=== PATIENT | male | born 1950 | race Caucasian/White ===

== ENCOUNTER 2016-12-17 13:17 | Inpatient (IN) | payer OTHER ==
[~2016-12-17] VITALS: Ht 177.8 cm; Wt 96.5 kg
[~2016-12-17 13:17] MED LIST: ASCORBIC ACID100 MG PO; ASCORBIC ACID250 MG PO; BACTRIM,SEPT1 TABLET PO; CLINDAMYCIN HC300 MG PO; GLIMEPIRIDE4 MG PO; GLYBURIDE5 MG PO; IRON160 M1 PO; IRON325 M1 PO; JANUVIA100 MG PO; LASIX40 MG PO; LO-DOSE ASPIRIN81 M1 PO; LOPRESSOR25 MG PO; METFORMIN HCL1000 MG PO; METOPROLOL TART25 MG PO; PRAVASTATIN SOD10 MG PO; PRINIVIL20 MG PO; VITAMIN B-12500 MC2 PO; VITAMIN B-12500 MC3 PO
[2016-12-17 14:37] LABS: HEMATOCRIT 32.6 % (38.0-50.0); MCH 31.4 PG (29.0-34.0); MCV 92.4 FL (86-99); MEAN PLAT.VOLUME 9.9 uM^3 (9.0-12.4); PLATELET COUNT 326 K/uL (156-360); RBC DIS.WIDTH-CV 13.9 % (11.8-14.6); RBC DIS.WIDTH-SD 46.8 % (39-53); RED BLOOD COUNT 3.53 M/uL (4.00-5.50); WHITE BLOOD COUNT 18.9 K/uL (4.1-10.2)
[2016-12-17 14:45] LABS: CHLORIDE 100 mEq/L (99-109); INTER. NORMALIZED RATIO 1.2; PROTHROMBIN TIME 12.5 (9.2-11.2); SODIUM 128 mEq/L (136-147)
[2016-12-17 14:47] LABS: GLUCOSE 302 mg/dL (70-99)
[2016-12-17 14:48] LABS: ANION GAP 12 MEQ/L (2-14)
[2016-12-17 14:49] LABS: TOTAL BILIRUBIN 1.9 mg/dL (0.0-1.0)
[2016-12-17 14:50] LABS: ALKALINE PHOSPHATASE 71 IU/L (3-129)
[2016-12-17 14:51] LABS: GFR ESTIMATE (CALCULATED) 49 mL/min/
[2016-12-17 14:52] LABS: POTASSIUM 6.8 mEq/L (3.7-5.4); UREA NITROGEN (BUN) 66 mg/dL (9-23)
[2016-12-17 16:34] LABS: TYPE OF FLUID PERITONEAL
[2016-12-17 17:35] LABS: BODY FLUID EOSINOPHILS 0 % (0-25); BODY FLUID RBC'S 1250 /MM^3 (0-100); BODY FLUID WBC'S 17125 /MM^3 (0-500); MONONUCLEAR WBC'S 2 %; POLYNUCLEAR WBC'S 98 % (0-25)
[2016-12-17] MEDS ORDERED: LOW DOSE ASPIRI81 M1 PO (18:35)
[2016-12-17] MEDS ORDERED: LIPITOR40 MG PO (18:36)
[2016-12-17] MEDS ORDERED: VITAMIN B-6100 MG PO (18:38)
[2016-12-17] MEDS ORDERED: BENTYL10 MG PO (18:39)
[2016-12-17] MEDS ORDERED: ALDACTONE25 MG PO (18:40)
[2016-12-17] MEDS ORDERED: LEVEMIR100 UNIT/2 SC (18:41)
[2016-12-17] MEDS ORDERED: K-DUR20 MEQ PO (18:41)
[2016-12-17 19:31] LABS: POTASSIUM 6.1 mEq/L (3.7-5.4)
[2016-12-17 20:43] VITALS: BP 143/65
[2016-12-17 23:45] VITALS: BP 136/61
[2016-12-18 03:18] LABS: CHLORIDE 102 mEq/L (99-109); SODIUM 131 mEq/L (136-147)
[2016-12-18 03:19] LABS: GLUCOSE 239 mg/dL (70-99)
[2016-12-18 03:21] LABS: ANION GAP 10 MEQ/L (2-14)
[2016-12-18 03:23] LABS: GFR ESTIMATE (CALCULATED) 46 mL/min/
[2016-12-18 03:24] LABS: UREA NITROGEN (BUN) 70 mg/dL (9-23)
[2016-12-18 03:25] LABS: POTASSIUM 6.3 mEq/L (3.7-5.4)
[2016-12-18 03:49] VITALS: BP 130/64
[2016-12-18 05:03] LABS: CHLORIDE 102 mEq/L (99-109); SODIUM 131 mEq/L (136-147)
[2016-12-18 05:05] LABS: GLUCOSE 200 mg/dL (70-99)
[2016-12-18 05:06] LABS: ANION GAP 12 MEQ/L (2-14)
[2016-12-18 05:09] LABS: GFR ESTIMATE (CALCULATED) 49 mL/min/; UREA NITROGEN (BUN) 68 mg/dL (9-23)
[2016-12-18 07:08] LABS: EOSINOPHIL (%) 0.3 % (0-5); HEMATOCRIT 30.1 % (38.0-50.0); IMMATURE GRANULOCYTE (%) 0.8 % (0.0-0.7); IMMATURE GRANULOCYTE COUNT 0.1 K/uL; INSTRUMENT ABS NEUTROPHIL CT 13.6 K/uL; LYMPHOCYTE COUNT 0.4 K/uL (1.0-2.8); MCH 30.7 PG (29.0-34.0); MCHC 32.9 G/DL (30.0-36.0); MCV 93.2 FL (86-99); MEAN PLAT.VOLUME 9.8 uM^3 (9.0-12.4); MONOCYTE (%) 5.8 % (3-12); MONOCYTE COUNT 0.9 K/uL (0-0.8); NEUTROPHIL (%) 90.3 % (45-76); NEUTROPHIL COUNT 13.6 K/uL (1.8-6.4); PLATELET COUNT 290 K/uL (156-360); RBC DIS.WIDTH-SD 47.7 % (39-53); RED BLOOD COUNT 3.23 M/uL (4.00-5.50); WHITE BLOOD COUNT 15.1 K/uL (4.1-10.2)
[2016-12-18 07:27] LABS: ADD MIUA? YES; BILIRUBIN NEGATIVE; BLOOD NEGATIVE; COLOR AMBER ((YELLOW)); GLUCOSE (STRIP) 50; KETONES NEGATIVE; LEUKOCYTES NEGATIVE; NITRITE NEGATIVE; PROTEIN (STRIP) NEGATIVE; SPECIFIC GRAVITY 1.024 (1.000-1.030); UROBILINOGEN 0.2 MG/DL (0.2-1.0)
[2016-12-18 07:28] VITALS: BP 146/66
[2016-12-18 07:34] LABS: ALKALINE PHOSPHATASE 60 IU/L (3-129); ANION GAP 10 MEQ/L (2-14); CHLORIDE 101 MEQ/L (99-109); GFR ESTIMATE (CALCULATED) 49 mL/min/; GLUCOSE 189 mg/dL (70-99); POTASSIUM 5.7 MEQ/L (3.7-5.4); SAMPLE HEMOLYSIS CHECK 0; SAMPLE ICTERIC CHECK 0; SAMPLE LIPEMIA CHECK 0; SODIUM 133 MEQ/L (136-147); TOTAL BILIRUBIN 1.3 MG/DL (0.0-1.0); UREA NITROGEN (BUN) 66 mg/dL (9-23)
[2016-12-18 07:51] LABS: POINT-OF-CARE METER ID UU14188625
[2016-12-18 07:53] LABS: BACTERIA RARE /HPF; EPITHELIAL CELLS RARE /HPF; HYALINE CASTS TNTC /LPF; MUCUS TRACE /LPF; RED BLOOD CELLS 0-5 /HPF (0-5); WHITE BLOOD CELLS 0-5 /HPF (0-5)
[2016-12-18 10:33] LABS: ANTI-HEPATITIS A VIRUS (IGM) Nonreactive; HAV INDEX 0.14; HBSG INDEX 0.46; HPCA INDEX 0.17
[2016-12-18 10:35] LABS: ANTI-HEPATITIS B CORE (IGM) Nonreactive; HBC IgM INDEX 0.09
[2016-12-18 11:51] VITALS: BP 131/60
[2016-12-18 12:10] LABS: POINT-OF-CARE METER ID UU14188625
[2016-12-18 12:53] LABS: ANION GAP 10 MEQ/L (2-14); CHLORIDE 101 MEQ/L (99-109); GFR ESTIMATE (CALCULATED) 54 mL/min/; GLUCOSE 255 mg/dL (70-99); POTASSIUM 5.6 MEQ/L (3.7-5.4); SAMPLE HEMOLYSIS CHECK 0; SAMPLE ICTERIC CHECK 0; SAMPLE LIPEMIA CHECK 0; SODIUM 132 MEQ/L (136-147); UREA NITROGEN (BUN) 65 mg/dL (9-23)
[2016-12-18 15:36] LABS: TYPE OF FLUID PARACENTESIS
[2016-12-18 16:20] LABS: BODY FLUID RBC'S 8000 /MM^3 (0-100); BODY FLUID WBC'S 17112 /MM^3 (0-500)
[2016-12-18 16:45] VITALS: BP 130/77
[2016-12-18 17:35] LABS: BODY FLUID EOSINOPHILS 0 % (0-25); MONONUCLEAR WBC'S 3 %; POLYNUCLEAR WBC'S 97 % (0-25)
[2016-12-18 18:00] LABS: BODY FLUID LDH 346 IU/L
[2016-12-18 18:26] LABS: BODY FLUID PROTEIN < 3.0 G/DL
[2016-12-18 19:43] VITALS: BP 137/65
[2016-12-18 21:04] LABS: POINT-OF-CARE METER ID UU14174225
[2016-12-18 23:27] VITALS: BP 167/70
[2016-12-19 03:46] VITALS: BP 163/82
[2016-12-19 06:47] LABS: ANION GAP 8 MEQ/L (2-14); C-REACTIVE PROTEIN 196.2 MG/L (0-10); CHLORIDE 102 MEQ/L (99-109); GFR ESTIMATE (CALCULATED) > 59 mL/min/; GLUCOSE 266 mg/dL (70-99); SAMPLE HEMOLYSIS CHECK 0; SAMPLE ICTERIC CHECK 0; SAMPLE LIPEMIA CHECK 0; SODIUM 131 MEQ/L (136-147); UREA NITROGEN (BUN) 60 mg/dL (9-23)
[2016-12-19 06:57] LABS: HEMATOCRIT 25.9 % (38.0-50.0); MCH 31.5 PG (29.0-34.0); MCHC 33.6 G/DL (30.0-36.0); MCV 93.8 FL (86-99); MEAN PLAT.VOLUME 9.9 uM^3 (9.0-12.4); PLATELET COUNT 243 K/uL (156-360); RBC DIS.WIDTH-CV 14.4 % (11.8-14.6); RBC DIS.WIDTH-SD 48.8 % (39-53); RED BLOOD COUNT 2.76 M/uL (4.00-5.50)
[2016-12-19 07:17] LABS: WHITE BLOOD COUNT 10.4 K/uL (4.1-10.2)
[2016-12-19 07:47] VITALS: BP 140/69
[2016-12-19 10:50] LABS: TYPE OF FLUID PARACENTESIS
[2016-12-19 10:58] VITALS: BP 150/68
[2016-12-19 12:23] LABS: BODY FLUID EOSINOPHILS 0 % (0-25); BODY FLUID RBC'S 3000 /MM^3 (0-100); BODY FLUID WBC'S 4717 /MM^3 (0-500); MONONUCLEAR WBC'S 15 %; POLYNUCLEAR WBC'S 85 % (0-25)
[2016-12-19 16:11] VITALS: BP 141/63
[2016-12-19 17:12] LABS: POINT-OF-CARE METER ID UU14174225
[2016-12-19 19:47] VITALS: BP 150/67
[2016-12-20] VITALS (7 sets, daily range): BP systolic 128–152; BP diastolic 57–90
[2016-12-20 02:44] LABS: BODY FLUID PH 7.5 (())
[2016-12-20 06:37] LABS: EOSINOPHIL COUNT 0.1 K/uL (0-0.3); HEMATOCRIT 28.1 % (38.0-50.0); IMMATURE GRANULOCYTE (%) 0.8 % (0.0-0.7); IMMATURE GRANULOCYTE COUNT 0.1 K/uL; LYMPHOCYTE COUNT 0.4 K/uL (1.0-2.8); MCH 31.3 PG (29.0-34.0); MCHC 33.1 G/DL (30.0-36.0); MCV 94.6 FL (86-99); MEAN PLAT.VOLUME 9.3 uM^3 (9.0-12.4); MONOCYTE (%) 9.2 % (3-12); NEUTROPHIL (%) 85.5 % (45-76); PLATELET COUNT 267 K/uL (156-360); RBC DIS.WIDTH-CV 14.3 % (11.8-14.6); RBC DIS.WIDTH-SD 49.6 % (39-53); RED BLOOD COUNT 2.97 M/uL (4.00-5.50); WHITE BLOOD COUNT 10.5 K/uL (4.1-10.2)
[2016-12-20 07:13] LABS: ANION GAP 7 MEQ/L (2-14); CHLORIDE 101 MEQ/L (99-109); GFR ESTIMATE (CALCULATED) > 59 mL/min/; GLUCOSE 224 mg/dL (70-99); POTASSIUM 4.8 MEQ/L (3.7-5.4); SAMPLE HEMOLYSIS CHECK 0; SAMPLE ICTERIC CHECK 0; SAMPLE LIPEMIA CHECK 0; SODIUM 131 MEQ/L (136-147); UREA NITROGEN (BUN) 55 mg/dL (9-23)
[2016-12-20 08:33] LABS: ALKALINE PHOSPHATASE 61 IU/L (3-129); DIRECT BILIRUBIN 0.4 mg/dL (0.0-0.3)
[2016-12-20 21:29] LABS: POINT-OF-CARE METER ID UU14188625
[2016-12-21] VITALS (7 sets, daily range): BP systolic 128–144; BP diastolic 59–74
[2016-12-21 06:56] LABS: EOSINOPHIL (%) 1.1 % (0-5); EOSINOPHIL COUNT 0.1 K/uL (0-0.3); HEMATOCRIT 30.3 % (38.0-50.0); IMMATURE GRANULOCYTE (%) 0.5 % (0.0-0.7); IMMATURE GRANULOCYTE COUNT 0.1 K/uL; INSTRUMENT ABS NEUTROPHIL CT 8.3 K/uL; LYMPHOCYTE COUNT 0.4 K/uL (1.0-2.8); MCH 30.7 PG (29.0-34.0); MCV 92.9 FL (86-99); MEAN PLAT.VOLUME 9.6 uM^3 (9.0-12.4); MONOCYTE (%) 11.3 % (3-12); MONOCYTE COUNT 1.1 K/uL (0-0.8); NEUTROPHIL (%) 82.6 % (45-76); NEUTROPHIL COUNT 8.3 K/uL (1.8-6.4); PLATELET COUNT 308 K/uL (156-360); RBC DIS.WIDTH-CV 14.1 % (11.8-14.6); RED BLOOD COUNT 3.26 M/uL (4.00-5.50); WHITE BLOOD COUNT 10.1 K/uL (4.1-10.2)
[2016-12-21 07:02] LABS: INTER. NORMALIZED RATIO 1.2; PROTHROMBIN TIME 12.7 (9.2-11.2)
[2016-12-21 08:47] LABS: CHLORIDE 100 mEq/L (99-109)
[2016-12-21 08:48] LABS: SODIUM 130 mEq/L (136-147)
[2016-12-21 08:49] LABS: GLUCOSE 286 mg/dL (70-99)
[2016-12-21 08:51] LABS: ANION GAP 10 MEQ/L (2-14)
[2016-12-21 08:53] LABS: GFR ESTIMATE (CALCULATED) > 59 mL/min/
[2016-12-21 08:54] LABS: UREA NITROGEN (BUN) 65 mg/dL (9-23)
[2016-12-21 10:04] LABS: C-REACTIVE PROTEIN 155.1 MG/L (0-10); SAMPLE HEMOLYSIS CHECK 0; SAMPLE ICTERIC CHECK 0; SAMPLE LIPEMIA CHECK 0
[2016-12-21 12:47] LABS: TYPE OF FLUID PERITONEAL
[2016-12-21 14:47] LABS: BODY FLUID EOSINOPHILS 0 % (0-25); BODY FLUID RBC'S 2000 /MM^3 (0-100); BODY FLUID WBC'S 3791 /MM^3 (0-500); MONONUCLEAR WBC'S 24 %; POLYNUCLEAR WBC'S 76 % (0-25)
[2016-12-22] VITALS: BP 141/66
[2016-12-22 04:03] VITALS: BP 140/66
[2016-12-22 06:53] LABS: EOSINOPHIL (%) 1.1 % (0-5); EOSINOPHIL COUNT 0.1 K/uL (0-0.3); HEMATOCRIT 30.8 % (38.0-50.0); IMMATURE GRANULOCYTE (%) 0.4 % (0.0-0.7); INSTRUMENT ABS NEUTROPHIL CT 8.4 K/uL; LYMPHOCYTE COUNT 0.4 K/uL (1.0-2.8); MCH 30.2 PG (29.0-34.0); MCHC 32.8 G/DL (30.0-36.0); MCV 92.2 FL (86-99); MEAN PLAT.VOLUME 9.7 uM^3 (9.0-12.4); NEUTROPHIL (%) 84.3 % (45-76); NEUTROPHIL COUNT 8.4 K/uL (1.8-6.4); PLATELET COUNT 263 K/uL (156-360); RBC DIS.WIDTH-CV 13.7 % (11.8-14.6); RBC DIS.WIDTH-SD 46.6 % (39-53); RED BLOOD COUNT 3.34 M/uL (4.00-5.50)
[2016-12-22 07:20] LABS: ALKALINE PHOSPHATASE 84 IU/L (3-129); ANION GAP 8 MEQ/L (2-14); CHLORIDE 99 MEQ/L (99-109); GFR ESTIMATE (CALCULATED) > 59 mL/min/; GLUCOSE 265 mg/dL (70-99); POTASSIUM 4.8 MEQ/L (3.7-5.4); SAMPLE HEMOLYSIS CHECK 0; SAMPLE ICTERIC CHECK 0; SAMPLE LIPEMIA CHECK 0; SODIUM 128 MEQ/L (136-147); TOTAL BILIRUBIN 0.8 MG/DL (0.0-1.0); UREA NITROGEN (BUN) 62 mg/dL (9-23)
[2016-12-22 08:35] VITALS: BP 151/71
[2016-12-22 08:44] LABS: POINT-OF-CARE METER ID UU14188625
[2016-12-22 12:19] LABS: POINT-OF-CARE METER ID UU14188625
[2016-12-22 12:41] VITALS: BP 118/56
[2016-12-22 16:20] VITALS: BP 129/71
[2016-12-22 19:33] VITALS: BP 126/58
[2016-12-23] VITALS: BP 132/78
[2016-12-23 03:51] VITALS: BP 145/71
[2016-12-23 06:44] LABS: EOSINOPHIL (%) 1.5 % (0-5); EOSINOPHIL COUNT 0.2 K/uL (0-0.3); HEMATOCRIT 31.2 % (38.0-50.0); IMMATURE GRANULOCYTE (%) 0.6 % (0.0-0.7); IMMATURE GRANULOCYTE COUNT 0.1 K/uL; INSTRUMENT ABS NEUTROPHIL CT 8.2 K/uL; LYMPHOCYTE COUNT 0.5 K/uL (1.0-2.8); MCH 31.3 PG (29.0-34.0); MCHC 33.7 G/DL (30.0-36.0); MCV 92.9 FL (86-99); MEAN PLAT.VOLUME 9.7 uM^3 (9.0-12.4); MONOCYTE (%) 8.7 % (3-12); MONOCYTE COUNT 0.9 K/uL (0-0.8); NEUTROPHIL (%) 84.1 % (45-76); NEUTROPHIL COUNT 8.2 K/uL (1.8-6.4); PLATELET COUNT 261 K/uL (156-360); RBC DIS.WIDTH-CV 13.7 % (11.8-14.6); RBC DIS.WIDTH-SD 47.3 % (39-53); RED BLOOD COUNT 3.36 M/uL (4.00-5.50); WHITE BLOOD COUNT 9.7 K/uL (4.1-10.2)
[2016-12-23 07:08] LABS: ANION GAP 7 MEQ/L (2-14); CHLORIDE 99 MEQ/L (99-109); GFR ESTIMATE (CALCULATED) > 59 mL/min/; GLUCOSE 246 mg/dL (70-99); POTASSIUM 5.3 MEQ/L (3.7-5.4); SAMPLE HEMOLYSIS CHECK 0; SAMPLE ICTERIC CHECK 0; SAMPLE LIPEMIA CHECK 0; SODIUM 129 MEQ/L (136-147); UREA NITROGEN (BUN) 67 mg/dL (9-23)
[2016-12-23 08:25] VITALS: BP 137/64
[2016-12-23 11:40] VITALS: BP 138/66
[2016-12-23 16:39] VITALS: BP 133/57
[2016-12-23 20:35] VITALS: BP 127/59
[2016-12-23 21:31] LABS: POINT-OF-CARE METER ID UU14174225
[2016-12-24 00:09] VITALS: BP 160/75
[2016-12-24 04:04] VITALS: BP 133/60
[2016-12-24 07:54] VITALS: BP 134/69
[2016-12-24 10:59] VITALS: BP 128/66
[2016-12-24] MEDS ORDERED: LOPRESSOR50 MG PO (14:59)
[2016-12-24] MEDS ORDERED: CIPRO500 MG PO (15:01)
[2016-12-24 15:25] VITALS: BP 132/61
[2016-12-24 21:56] LABS: POINT-OF-CARE METER ID UU14188625
[2016-12-25] VITALS: BP 135/63
[2016-12-25 06:46] LABS: ANION GAP 7 MEQ/L (2-14); CHLORIDE 102 MEQ/L (99-109); GFR ESTIMATE (CALCULATED) > 59 mL/min/; POTASSIUM 5.2 MEQ/L (3.7-5.4); SAMPLE HEMOLYSIS CHECK 0; SAMPLE ICTERIC CHECK 0; SAMPLE LIPEMIA CHECK 0; SODIUM 131 MEQ/L (136-147); UREA NITROGEN (BUN) 56 mg/dL (9-23)
[2016-12-25 06:50] LABS: GLUCOSE 94 mg/dL (70-99)
[2016-12-25 07:16] LABS: POINT-OF-CARE METER ID UU14188625
[2016-12-25 07:52] VITALS: BP 138/62
[2016-12-25 16:09] VITALS: BP 133/61
[2016-12-25 17:10] LABS: POINT-OF-CARE METER ID UU14188625
== END 2016-12-25 17:24 | disposition home health service (06) | DRG 372 ==
LOC: EME 13:17 → 5SOUTH 19:07 → EDOF 19:07 → 5SOUTH 20:28
PROVIDERS: Emergency Medicine; Hospitalist; Internal Medicine; Internal Medicine Gastroenterology; Internal Medicine Nephrology; Radiology Diagnostic Radiology
PROC: 0W9G3ZZ Drainage of Peritoneal Cavity, Percutaneous Approach (ICD-10-PCS; principal; 2016-12-17)
PROC: 0W9G3ZZ Drainage of Peritoneal Cavity, Percutaneous Approach (ICD-10-PCS; 2016-12-18)
PROC: 0W9G3ZZ Drainage of Peritoneal Cavity, Percutaneous Approach (ICD-10-PCS; 2016-12-19)
PROC: 0W9G3ZZ Drainage of Peritoneal Cavity, Percutaneous Approach (ICD-10-PCS; 2016-12-21)
DX: K65.2 Spontaneous bacterial peritonitis (principal); R78.81 Bacteremia; B96.1 Klebsiella pneumoniae [K. pneumoniae] as the cause of diseases classified elsewhere; R18.8 Other ascites; K74.60 Unspecified cirrhosis of liver; N17.9 Acute kidney failure, unspecified; E87.5 Hyperkalemia; T50.0X5A Adverse effect of mineralocorticoids and their antagonists, initial encounter; I48.91 Unspecified atrial fibrillation; I11.0 Hypertensive heart disease with heart failure; I50.9 Heart failure, unspecified; E78.5 Hyperlipidemia, unspecified; E87.1 Hypo-osmolality and hyponatremia; I25.10 Atherosclerotic heart disease of native coronary artery without angina pectoris; I48.0 Paroxysmal atrial fibrillation; E87.2 Acidosis; E88.09 Other disorders of plasma-protein metabolism, not elsewhere classified; D64.9 Anemia, unspecified; K75.81 Nonalcoholic steatohepatitis (NASH); E66.9 Obesity, unspecified; E11.65 Type 2 diabetes mellitus with hyperglycemia; K72.90 Hepatic failure, unspecified without coma; Z87.891 Personal history of nicotine dependence; Z85.038 Personal history of other malignant neoplasm of large intestine; Z95.1 Presence of aortocoronary bypass graft; Z90.49 Acquired absence of other specified parts of digestive tract; Z68.30 Body mass index [BMI] 30.0-30.9, adult; Z91.14 Patient's other noncompliance with medication regimen; Z79.84 Long term (current) use of oral hypoglycemic drugs
CPT/HCPCS: 71020; 74176; 76705; 76770; 80048; 80048 91; 80053; 80069; 80074; 80076; 81003; 82105 90; 82140; 82436; 82945; 82948; 83605; 83615 91; 83986 90; 84132 91; 84133; 84157; 84300; 84443; 85025; 85027; 85610; 86140; 87040; 87070; 87075; 87077; 87186; 87205; 87801; 88108; 88305; 89051; 93005; 94640; 99281; 99285; J0610; J0696; J1644; J1815; J7030; J7050; P9047

== ENCOUNTER 2016-12-31 14:11 | Inpatient (IN) | payer OTHER ==
[~2016-12-31] VITALS: Ht 180.3 cm; Wt 97.5 kg
[~2016-12-31 14:11] MED LIST changes: +ALDACTONE25 MG PO; +BENTYL10 MG PO; +CIPRO500 MG PO; +K-DUR20 MEQ PO; +LEVEMIR100 UNIT/2 SC; +LIPITOR40 MG PO; +LOPRESSOR50 MG PO; +LOW DOSE ASPIRI81 M1 PO; +VITAMIN B-6100 MG PO
[2016-12-31 15:44] LABS: HEMATOCRIT 30.5 % (38.0-50.0); MCH 31.1 PG (29.0-34.0); MCHC 32.8 G/DL (30.0-36.0); MCV 94.7 FL (86-99); MEAN PLAT.VOLUME 10.8 uM^3 (9.0-12.4); PLATELET COUNT 193 K/uL (156-360); RBC DIS.WIDTH-CV 14.1 % (11.8-14.6); RBC DIS.WIDTH-SD 49.3 % (39-53); RED BLOOD COUNT 3.22 M/uL (4.00-5.50); WHITE BLOOD COUNT 8.3 K/uL (4.1-10.2)
[2016-12-31 16:17] LABS: ANION GAP 5 MEQ/L (2-14); CHLORIDE 102 MEQ/L (99-109); GFR ESTIMATE (CALCULATED) > 59 mL/min/; GLUCOSE 162 mg/dL (70-99); SAMPLE HEMOLYSIS CHECK 1; SAMPLE ICTERIC CHECK 0; SAMPLE LIPEMIA CHECK 0; SODIUM 127 MEQ/L (136-147); TOTAL BILIRUBIN 0.9 MG/DL (0.0-1.0); UREA NITROGEN (BUN) 40 mg/dL (9-23)
[2016-12-31 16:18] LABS: ALKALINE PHOSPHATASE 155 IU/L (3-129); POTASSIUM 6.8 MEQ/L (3.7-5.4)
[2016-12-31 17:23] LABS: POTASSIUM 6.6 mEq/L (3.7-5.4)
[2016-12-31 17:24] LABS: NO-CHARGE AST (GOT) 88 IU/L (2-34)
[2016-12-31] MEDS ORDERED: LASIX40 MG PO (17:47)
[2016-12-31] MEDS ORDERED: ALDACTONE25 MG PO (17:48)
[2016-12-31] MEDS ORDERED: K-DUR20 MEQ PO (17:48)
[2016-12-31] MEDS ORDERED: CIPRO500 MG PO (17:50)
[2016-12-31 20:18] VITALS: BP 121/57
[2016-12-31 20:18] LABS: GLUCOSE 186 mg/dL (70-99)
[2016-12-31 20:19] LABS: ANION GAP 5 MEQ/L (2-14)
[2016-12-31 20:22] LABS: GFR ESTIMATE (CALCULATED) > 59 mL/min/
[2016-12-31 20:32] LABS: CHLORIDE 106 mEq/L (99-109); SODIUM 132 mEq/L (136-147)
[2016-12-31 20:38] LABS: UREA NITROGEN (BUN) 37 mg/dL (9-23)
[2016-12-31 20:47] LABS: POTASSIUM 6.2 mEq/L (3.7-5.4)
[2016-12-31 21:08] LABS: INTER. NORMALIZED RATIO 1.2; PROTHROMBIN TIME 12.2 (9.2-11.2); PTT 27.5 (25-32)
[2016-12-31 23:37] VITALS: BP 107/54
[2017-01-01 04:30] VITALS: BP 122/58
[2017-01-01 05:54] LABS: HEMATOCRIT 28.5 % (38.0-50.0); MCH 30.2 PG (29.0-34.0); MCHC 31.6 G/DL (30.0-36.0); MCV 95.6 FL (86-99); MEAN PLAT.VOLUME 9.7 uM^3 (9.0-12.4); PLATELET COUNT 187 K/uL (156-360); RBC DIS.WIDTH-CV 14.3 % (11.8-14.6); RBC DIS.WIDTH-SD 49.5 % (39-53); RED BLOOD COUNT 2.98 M/uL (4.00-5.50)
[2017-01-01 06:23] LABS: ANION GAP 7 MEQ/L (2-14); CHLORIDE 106 MEQ/L (99-109); GFR ESTIMATE (CALCULATED) > 59 mL/min/; GLUCOSE 163 mg/dL (70-99); POTASSIUM 5.6 MEQ/L (3.7-5.4); SAMPLE HEMOLYSIS CHECK 0; SAMPLE ICTERIC CHECK 0; SAMPLE LIPEMIA CHECK 0; SODIUM 133 MEQ/L (136-147); UREA NITROGEN (BUN) 33 mg/dL (9-23)
[2017-01-01 07:53] VITALS: BP 134/65
[2017-01-01 12:00] VITALS: BP 126/58
[2017-01-01 16:37] LABS: POINT-OF-CARE METER ID UU14174216
[2017-01-01 16:38] VITALS: BP 113/59
[2017-01-01 18:11] VITALS: BP 125/58
[2017-01-01 19:19] VITALS: BP 131/60
[2017-01-02 00:24] VITALS: BP 131/65
[2017-01-02 05:00] VITALS: BP 130/64
[2017-01-02 06:27] LABS: EOSINOPHIL (%) 5.1 % (0-5); EOSINOPHIL COUNT 0.3 K/uL (0-0.3); HEMATOCRIT 27.2 % (38.0-50.0); IMMATURE GRANULOCYTE (%) 0.6 % (0.0-0.7); INSTRUMENT ABS NEUTROPHIL CT 3.9 K/uL; LYMPHOCYTE COUNT 0.4 K/uL (1.0-2.8); MCH 30.8 PG (29.0-34.0); MCHC 32.7 G/DL (30.0-36.0); MCV 94.1 FL (86-99); MONOCYTE (%) 11.5 % (3-12); MONOCYTE COUNT 0.6 K/uL (0-0.8); NEUTROPHIL (%) 73.9 % (45-76); NEUTROPHIL COUNT 3.9 K/uL (1.8-6.4); PLATELET COUNT 175 K/uL (156-360); RBC DIS.WIDTH-CV 14.3 % (11.8-14.6); RBC DIS.WIDTH-SD 49.1 % (39-53); RED BLOOD COUNT 2.89 M/uL (4.00-5.50); WHITE BLOOD COUNT 5.3 K/uL (4.1-10.2)
[2017-01-02 06:50] LABS: ANION GAP 7 MEQ/L (2-14); CHLORIDE 104 MEQ/L (99-109); GFR ESTIMATE (CALCULATED) > 59 mL/min/; GLUCOSE 191 mg/dL (70-99); POTASSIUM 4.5 MEQ/L (3.7-5.4); SAMPLE HEMOLYSIS CHECK 0; SAMPLE ICTERIC CHECK 0; SAMPLE LIPEMIA CHECK 0; SODIUM 133 MEQ/L (136-147); UREA NITROGEN (BUN) 27 mg/dL (9-23); URIC ACID 5.2 mg/dL (3.1-9.2)
[2017-01-02 06:52] LABS: ANION GAP 8 MEQ/L (2-14); CHLORIDE 104 MEQ/L (99-109); GFR ESTIMATE (CALCULATED) > 59 mL/min/; GLUCOSE 186 mg/dL (70-99); POTASSIUM 4.5 MEQ/L (3.7-5.4); SAMPLE HEMOLYSIS CHECK 0; SAMPLE ICTERIC CHECK 0; SAMPLE LIPEMIA CHECK 0; SODIUM 133 MEQ/L (136-147); UREA NITROGEN (BUN) 27 mg/dL (9-23)
[2017-01-02 06:54] LABS: ALKALINE PHOSPHATASE 107 IU/L (3-129); TOTAL BILIRUBIN 0.7 MG/DL (0.0-1.0)
[2017-01-02 07:50] VITALS: BP 127/60
[2017-01-02 12:03] VITALS: BP 133/60
[2017-01-02 12:33] LABS: POINT-OF-CARE METER ID UU13113781
[2017-01-02 17:36] VITALS: BP 115/57
[2017-01-02 19:40] VITALS: BP 120/60
[2017-01-02 20:42] LABS: POINT-OF-CARE METER ID UU14174216
[2017-01-03] VITALS (7 sets, daily range): BP systolic 96–120; BP diastolic 55–76
[2017-01-03 05:50] LABS: BASOPHIL COUNT 0.1 K/uL (0-0.1); EOSINOPHIL (%) 4.6 % (0-5); EOSINOPHIL COUNT 0.3 K/uL (0-0.3); HEMATOCRIT 26.6 % (38.0-50.0); IMMATURE GRANULOCYTE (%) 0.3 % (0.0-0.7); INSTRUMENT ABS NEUTROPHIL CT 4.3 K/uL; LYMPHOCYTE COUNT 0.6 K/uL (1.0-2.8); MCHC 32.7 G/DL (30.0-36.0); MCV 94.7 FL (86-99); MEAN PLAT.VOLUME 9.9 uM^3 (9.0-12.4); MONOCYTE (%) 11.1 % (3-12); MONOCYTE COUNT 0.7 K/uL (0-0.8); NEUTROPHIL (%) 73.4 % (45-76); NEUTROPHIL COUNT 4.3 K/uL (1.8-6.4); PLATELET COUNT 171 K/uL (156-360); RBC DIS.WIDTH-CV 14.4 % (11.8-14.6); RED BLOOD COUNT 2.81 M/uL (4.00-5.50); WHITE BLOOD COUNT 5.9 K/uL (4.1-10.2)
[2017-01-03 06:13] LABS: ANION GAP 5 MEQ/L (2-14); CHLORIDE 103 MEQ/L (99-109); GFR ESTIMATE (CALCULATED) > 59 mL/min/; GLUCOSE 154 mg/dL (70-99); POTASSIUM 4.5 MEQ/L (3.7-5.4); SAMPLE HEMOLYSIS CHECK 0; SAMPLE ICTERIC CHECK 0; SAMPLE LIPEMIA CHECK 0; SODIUM 132 MEQ/L (136-147); UREA NITROGEN (BUN) 26 mg/dL (9-23)
[2017-01-03 07:56] LABS: POINT-OF-CARE METER ID UU14174216
[2017-01-03 11:22] LABS: POINT-OF-CARE METER ID UU14174216
[2017-01-03 16:21] LABS: POINT-OF-CARE METER ID UU14174216
[2017-01-03 21:29] LABS: POINT-OF-CARE METER ID UU13113781
[2017-01-04 04:10] VITALS: BP 121/55
[2017-01-04 07:42] LABS: POINT-OF-CARE METER ID UU14174216
[2017-01-04 07:45] VITALS: BP 110/58
[2017-01-04] MEDS ORDERED: ATENOLOL25 MG PO (11:54)
[2017-01-04 12:01] LABS: POINT-OF-CARE METER ID UU13113781
[2017-01-04 12:39] VITALS: BP 100/54
== END 2017-01-04 12:40 | disposition home health service (06) | DRG 641 ==
LOC: EME 14:11 → EDOF 19:12 → 4EAST 19:12
PROVIDERS: Emergency Medicine; Hospitalist; Internal Medicine Nephrology; Student in an Organized Health Care Education/Training Program
PROC: 0W9G3ZZ Drainage of Peritoneal Cavity, Percutaneous Approach (ICD-10-PCS; principal; 2017-01-01)
DX: E87.5 Hyperkalemia (principal); K74.69 Other cirrhosis of liver; I95.9 Hypotension, unspecified; D68.4 Acquired coagulation factor deficiency; N17.9 Acute kidney failure, unspecified; K75.81 Nonalcoholic steatohepatitis (NASH); I48.0 Paroxysmal atrial fibrillation; R18.8 Other ascites; E11.65 Type 2 diabetes mellitus with hyperglycemia; T50.0X5A Adverse effect of mineralocorticoids and their antagonists, initial encounter; I10 Essential (primary) hypertension; Z85.038 Personal history of other malignant neoplasm of large intestine; Z90.49 Acquired absence of other specified parts of digestive tract; I25.10 Atherosclerotic heart disease of native coronary artery without angina pectoris; E78.5 Hyperlipidemia, unspecified; D64.9 Anemia, unspecified; D72.819 Decreased white blood cell count, unspecified; E87.70 Fluid overload, unspecified; Z92.21 Personal history of antineoplastic chemotherapy; E87.1 Hypo-osmolality and hyponatremia; E66.9 Obesity, unspecified; Z95.1 Presence of aortocoronary bypass graft; R00.1 Bradycardia, unspecified; Z68.30 Body mass index [BMI] 30.0-30.9, adult; Z87.891 Personal history of nicotine dependence
CPT/HCPCS: 36415; 80048; 80048 91; 80053; 81003; 82533 91; 82728; 82948; 84100; 84132 91; 84550; 84999; 85025; 85027; 85610; 85730; 93005; 97530 GO; 99281; 99285; J0610; J1644; J1815; J7030; J7050; P9047

== ENCOUNTER → 2017-01-16 | Outpatient (CLI) | payer OTHER ==
[~2017-01-16] MED LIST changes: +ATENOLOL25 MG PO; +SPIRONOLACTONE25 MG PO
== END | disposition home or self-care (01) ==
LOC: RAD 08:05
PROC: 0W9G3ZZ Drainage of Peritoneal Cavity, Percutaneous Approach (ICD-10-PCS; principal; 2017-01-16)
DX: R18.8 Other ascites (principal)
CPT/HCPCS: P9047

== ENCOUNTER → 2017-01-22 | Outpatient (CLI) | payer OTHER | END | disposition home or self-care (01) | LOC: RAD 12:45 | PROC: 0W9G3ZZ Drainage of Peritoneal Cavity, Percutaneous Approach (ICD-10-PCS; principal; 2017-01-22) | DX: R18.8 Other ascites (principal) ==

== ENCOUNTER → 2017-01-25 | Outpatient (CLI) | payer OTHER | END | disposition home or self-care (01) | LOC: RAD 10:38 | PROC: 0W9G3ZZ Drainage of Peritoneal Cavity, Percutaneous Approach (ICD-10-PCS; principal; 2017-01-25) | DX: R18.8 Other ascites (principal); K74.60 Unspecified cirrhosis of liver | CPT/HCPCS: P9047 ==

== ENCOUNTER → 2017-01-31 | Outpatient (CLI) | payer OTHER ==
[~2017-01-31] MED LIST changes: +LEVEMIR FL100 UNIT/1 SC
== END | disposition home or self-care (01) ==
LOC: RAD 12:38
PROC: 0W9G3ZZ Drainage of Peritoneal Cavity, Percutaneous Approach (ICD-10-PCS; principal; 2017-01-31)
DX: R18.8 Other ascites (principal); K74.60 Unspecified cirrhosis of liver
CPT/HCPCS: P9047

== ENCOUNTER → 2017-02-06 | Outpatient (CLI) | payer OTHER | END | disposition home or self-care (01) | LOC: RAD 02-05 13:15 | PROC: 0W9G3ZZ Drainage of Peritoneal Cavity, Percutaneous Approach (ICD-10-PCS; principal; 2017-02-06) | DX: R18.8 Other ascites (principal); K74.60 Unspecified cirrhosis of liver | CPT/HCPCS: P9047 ==

== ENCOUNTER → 2017-02-12 | Outpatient (CLI) | payer OTHER | END | disposition home or self-care (01) | LOC: RAD 12:33 | PROC: 0W9G3ZZ Drainage of Peritoneal Cavity, Percutaneous Approach (ICD-10-PCS; principal; 2017-02-12) | DX: R18.8 Other ascites (principal); K74.60 Unspecified cirrhosis of liver | CPT/HCPCS: P9047 ==

== ENCOUNTER → 2017-02-20 | Outpatient (CLI) | payer OTHER | END | disposition home or self-care (01) | LOC: RAD 07:48 | PROC: 0W9G3ZZ Drainage of Peritoneal Cavity, Percutaneous Approach (ICD-10-PCS; principal; 2017-02-20) | DX: R18.8 Other ascites (principal); K74.60 Unspecified cirrhosis of liver | CPT/HCPCS: P9047 ==

== ENCOUNTER → 2017-02-27 | Outpatient (CLI) | payer OTHER ==
[~2017-02-27] VITALS: Ht 180.3 cm; Wt 87.7 kg
== END | disposition home or self-care (01) ==
LOC: RAD 12:48
PROC: 0W9G3ZZ Drainage of Peritoneal Cavity, Percutaneous Approach (ICD-10-PCS; principal; 2017-02-27)
DX: R18.8 Other ascites (principal); K74.60 Unspecified cirrhosis of liver
CPT/HCPCS: P9047

== ENCOUNTER → 2017-03-07 | Outpatient (CLI) | payer OTHER ==
[~2017-03-07] MED LIST changes: +SANTYL30 GM TP
== END | disposition home or self-care (01) ==
LOC: RAD 12:40
PROC: 0W9G3ZZ Drainage of Peritoneal Cavity, Percutaneous Approach (ICD-10-PCS; principal; 2017-03-07)
DX: R18.8 Other ascites (principal); K74.60 Unspecified cirrhosis of liver
CPT/HCPCS: 49083; P9047

== ENCOUNTER 2017-03-08 13:06 | Inpatient (IN) | payer OTHER ==
[~2017-03-08] VITALS: Ht 177.8 cm; Wt 99.1 kg
[~2017-03-08 13:06] MED LIST changes: -SANTYL30 GM TP
[2017-03-08 14:03] LABS: POINT-OF-CARE METER ID UU13113778
[2017-03-08 15:01] LABS: EOSINOPHIL (%) 1.3 % (0-5); EOSINOPHIL COUNT 0.1 K/uL (0-0.3); HEMATOCRIT 26.9 % (38.0-50.0); IMMATURE GRANULOCYTE (%) 0.4 % (0.0-0.7); INSTRUMENT ABS NEUTROPHIL CT 6.3 K/uL; LYMPHOCYTE COUNT 0.3 K/uL (1.0-2.8); MCH 29.6 PG (29.0-34.0); MCHC 31.6 G/DL (30.0-36.0); MCV 93.7 FL (86-99); MEAN PLAT.VOLUME 9.3 uM^3 (9.0-12.4); MONOCYTE (%) 12.6 % (3-12); NEUTROPHIL COUNT 6.3 K/uL (1.8-6.4); PLATELET COUNT 171 K/uL (156-360); RBC DIS.WIDTH-CV 15.5 % (11.8-14.6); RBC DIS.WIDTH-SD 54.2 % (39-53); RED BLOOD COUNT 2.87 M/uL (4.00-5.50); WHITE BLOOD COUNT 7.7 K/uL (4.1-10.2)
[2017-03-08 15:13] LABS: CHLORIDE 104 mEq/L (99-109); POTASSIUM 5.3 mEq/L (3.7-5.4); SODIUM 130 mEq/L (136-147)
[2017-03-08 15:15] LABS: GLUCOSE 287 mg/dL (70-99)
[2017-03-08 15:16] LABS: ANION GAP 8 MEQ/L (2-14)
[2017-03-08 15:19] LABS: GFR ESTIMATE (CALCULATED) > 59 mL/min/; UREA NITROGEN (BUN) 44 mg/dL (9-23)
[2017-03-08] MEDS ORDERED: SANTYL30 GM TP (16:03)
[2017-03-08 16:07] LABS: INTER. NORMALIZED RATIO 1.2
[2017-03-08 16:13] LABS: LIPASE 68 U/L (1.0-51.0)
[2017-03-08 18:29] LABS: BILIRUBIN NEGATIVE; BLOOD NEGATIVE; COLOR YELLOW ((YELLOW)); GLUCOSE (STRIP) NEGATIVE; KETONES NEGATIVE; LEUKOCYTES NEGATIVE; NITRITE NEGATIVE; PROTEIN (STRIP) NEGATIVE; SPECIFIC GRAVITY 1.027 (1.000-1.030); UROBILINOGEN 0.2 MG/DL (0.2-1.0)
[2017-03-08 18:30] LABS: ADD MIUA? NO; UCUL ADDED? NO
[2017-03-08 20:16] VITALS: BP 140/68
[2017-03-08 20:36] VITALS: BP 143/73
[2017-03-08 21:37] VITALS: BP 138/70
[2017-03-08 22:35] VITALS: BP 140/64
[2017-03-09] VITALS (7 sets, daily range): BP systolic 133–139; BP diastolic 58–73
[2017-03-09 00:21] LABS: POINT-OF-CARE METER ID UU14174225
[2017-03-09 05:32] LABS: HEMATOCRIT 30.3 % (38.0-50.0); MCH 29.7 PG (29.0-34.0); MCHC 32.3 G/DL (30.0-36.0); MCV 91.8 FL (86-99); MEAN PLAT.VOLUME 9.1 uM^3 (9.0-12.4); PLATELET COUNT 139 K/uL (156-360); RBC DIS.WIDTH-CV 15.9 % (11.8-14.6); RBC DIS.WIDTH-SD 53.4 % (39-53); WHITE BLOOD COUNT 6.5 K/uL (4.1-10.2)
[2017-03-09 06:33] LABS: ALKALINE PHOSPHATASE 63 IU/L (3-129); ANION GAP 6 MEQ/L (2-14); CHLORIDE 109 MEQ/L (99-109); GFR ESTIMATE (CALCULATED) > 59 mL/min/; GLUCOSE 183 mg/dL (70-99); POTASSIUM 4.7 MEQ/L (3.7-5.4); SAMPLE HEMOLYSIS CHECK 0; SAMPLE ICTERIC CHECK 0; SAMPLE LIPEMIA CHECK 0; SODIUM 135 MEQ/L (136-147); TOTAL BILIRUBIN 1.2 MG/DL (0.0-1.0); UREA NITROGEN (BUN) 35 mg/dL (9-23)
[2017-03-09 11:43] LABS: POINT-OF-CARE METER ID UU13113717
[2017-03-09 16:23] LABS: POINT-OF-CARE METER ID UU13113717
[2017-03-10 05:22] LABS: EOSINOPHIL (%) 3.8 % (0-5); EOSINOPHIL COUNT 0.2 K/uL (0-0.3); IMMATURE GRANULOCYTE (%) 0.3 % (0.0-0.7); INSTRUMENT ABS NEUTROPHIL CT 4.7 K/uL; LYMPHOCYTE COUNT 0.2 K/uL (1.0-2.8); MCH 30.7 PG (29.0-34.0); MCV 92.9 FL (86-99); MEAN PLAT.VOLUME 9.6 uM^3 (9.0-12.4); MONOCYTE (%) 10.5 % (3-12); MONOCYTE COUNT 0.6 K/uL (0-0.8); NEUTROPHIL (%) 81.1 % (45-76); NEUTROPHIL COUNT 4.7 K/uL (1.8-6.4); PLATELET COUNT 158 K/uL (156-360); RBC DIS.WIDTH-SD 55.3 % (39-53); RED BLOOD COUNT 3.23 M/uL (4.00-5.50); WHITE BLOOD COUNT 5.8 K/uL (4.1-10.2)
[2017-03-10 05:57] LABS: ALKALINE PHOSPHATASE 60 IU/L (3-129); ANION GAP 7 MEQ/L (2-14); CHLORIDE 112 MEQ/L (99-109); GFR ESTIMATE (CALCULATED) > 59 mL/min/; GLUCOSE 122 mg/dL (70-99); IRON 17 MCG/DL (35-150); MAGNESIUM 1.8 mg/dl (1.3-2.7); POTASSIUM 4.9 MEQ/L (3.7-5.4); SAMPLE HEMOLYSIS CHECK 0; SAMPLE ICTERIC CHECK 0; SAMPLE LIPEMIA CHECK 0; SODIUM 138 MEQ/L (136-147); TOTAL BILIRUBIN 1.2 MG/DL (0.0-1.0); UREA NITROGEN (BUN) 24 mg/dL (9-23); VANCOMYCIN, TROUGH 12.3 MCG/ML (10-20)
[2017-03-10 07:42] VITALS: BP 155/71
[2017-03-10 09:18] LABS: FERRITIN 204 NG/ML (22-322)
[2017-03-10 11:17] VITALS: BP 136/63
[2017-03-10 11:26] LABS: POINT-OF-CARE METER ID UU14188625
[2017-03-10 15:06] VITALS: BP 139/65
[2017-03-10 21:31] LABS: POINT-OF-CARE METER ID UU14188625
[2017-03-11 03:13] VITALS: BP 142/70
[2017-03-11 06:35] LABS: EOSINOPHIL (%) 3.2 % (0-5); EOSINOPHIL COUNT 0.2 K/uL (0-0.3); HEMATOCRIT 30.4 % (38.0-50.0); IMMATURE GRANULOCYTE (%) 0.6 % (0.0-0.7); INSTRUMENT ABS NEUTROPHIL CT 4.3 K/uL; LYMPHOCYTE COUNT 0.3 K/uL (1.0-2.8); MCH 29.8 PG (29.0-34.0); MCHC 31.9 G/DL (30.0-36.0); MCV 93.5 FL (86-99); MEAN PLAT.VOLUME 9.3 uM^3 (9.0-12.4); MONOCYTE (%) 10.8 % (3-12); MONOCYTE COUNT 0.6 K/uL (0-0.8); NEUTROPHIL (%) 80.4 % (45-76); NEUTROPHIL COUNT 4.3 K/uL (1.8-6.4); PLATELET COUNT 178 K/uL (156-360); RBC DIS.WIDTH-CV 15.9 % (11.8-14.6); RBC DIS.WIDTH-SD 54.8 % (39-53); RED BLOOD COUNT 3.25 M/uL (4.00-5.50); WHITE BLOOD COUNT 5.4 K/uL (4.1-10.2)
[2017-03-11 07:17] LABS: ALKALINE PHOSPHATASE 70 IU/L (3-129); ANION GAP 8 MEQ/L (2-14); CHLORIDE 112 MEQ/L (99-109); GFR ESTIMATE (CALCULATED) > 59 mL/min/; MAGNESIUM 1.7 mg/dl (1.3-2.7); POTASSIUM 4.4 MEQ/L (3.7-5.4); SAMPLE HEMOLYSIS CHECK 0; SAMPLE ICTERIC CHECK 0; SAMPLE LIPEMIA CHECK 0; SODIUM 138 MEQ/L (136-147); UREA NITROGEN (BUN) 20 mg/dL (9-23)
[2017-03-11 07:26] LABS: GLUCOSE 205 mg/dL (70-99); TOTAL BILIRUBIN 0.9 MG/DL (0.0-1.0)
[2017-03-11 08:04] VITALS: BP 150/76
[2017-03-11 12:06] VITALS: BP 146/72
[2017-03-11 16:14] VITALS: BP 132/70
[2017-03-11 17:03] LABS: POINT-OF-CARE METER ID UU13113717
[2017-03-11 20:00] VITALS: BP 143/71
[2017-03-12 00:04] VITALS: BP 153/71
[2017-03-12 03:32] VITALS: BP 144/71
[2017-03-12 07:03] LABS: EOSINOPHIL (%) 3.8 % (0-5); EOSINOPHIL COUNT 0.2 K/uL (0-0.3); HEMATOCRIT 30.3 % (38.0-50.0); IMMATURE GRANULOCYTE (%) 0.5 % (0.0-0.7); INSTRUMENT ABS NEUTROPHIL CT 4.4 K/uL; LYMPHOCYTE COUNT 0.3 K/uL (1.0-2.8); MCH 29.7 PG (29.0-34.0); MCV 92.7 FL (86-99); MEAN PLAT.VOLUME 10.4 uM^3 (9.0-12.4); MONOCYTE (%) 10.7 % (3-12); MONOCYTE COUNT 0.6 K/uL (0-0.8); NEUTROPHIL (%) 79.9 % (45-76); NEUTROPHIL COUNT 4.4 K/uL (1.8-6.4); PLATELET COUNT 146 K/uL (156-360); RBC DIS.WIDTH-CV 15.9 % (11.8-14.6); RBC DIS.WIDTH-SD 54.7 % (39-53); RED BLOOD COUNT 3.27 M/uL (4.00-5.50); WHITE BLOOD COUNT 5.5 K/uL (4.1-10.2)
[2017-03-12 07:40] LABS: ALKALINE PHOSPHATASE 72 IU/L (3-129); ANION GAP 8 MEQ/L (2-14); CHLORIDE 112 MEQ/L (99-109); GFR ESTIMATE (CALCULATED) 43 mL/min/; GLUCOSE 221 mg/dL (70-99); MAGNESIUM 1.7 mg/dl (1.3-2.7); POTASSIUM 4.1 MEQ/L (3.7-5.4); SAMPLE HEMOLYSIS CHECK 0; SAMPLE ICTERIC CHECK 0; SAMPLE LIPEMIA CHECK 0; SODIUM 137 MEQ/L (136-147); TOTAL BILIRUBIN 0.9 MG/DL (0.0-1.0); UREA NITROGEN (BUN) 22 mg/dL (9-23)
[2017-03-12 07:43] LABS: POINT-OF-CARE METER ID UU14174225
[2017-03-12 08:01] VITALS: BP 153/73
[2017-03-12 11:30] LABS: POINT-OF-CARE METER ID UU14174225
[2017-03-12 12:19] VITALS: BP 142/72
[2017-03-12 17:35] LABS: POINT-OF-CARE METER ID UU14174225
[2017-03-12 23:34] VITALS: BP 152/71
[2017-03-13 07:25] LABS: EOSINOPHIL (%) 4.2 % (0-5); EOSINOPHIL COUNT 0.3 K/uL (0-0.3); HEMATOCRIT 30.1 % (38.0-50.0); IMMATURE GRANULOCYTE (%) 0.5 % (0.0-0.7); INSTRUMENT ABS NEUTROPHIL CT 4.8 K/uL; LYMPHOCYTE COUNT 0.3 K/uL (1.0-2.8); MCH 30.3 PG (29.0-34.0); MCHC 32.6 G/DL (30.0-36.0); MCV 93.2 FL (86-99); MEAN PLAT.VOLUME 9.4 uM^3 (9.0-12.4); MONOCYTE (%) 9.6 % (3-12); MONOCYTE COUNT 0.6 K/uL (0-0.8); NEUTROPHIL (%) 80.4 % (45-76); NEUTROPHIL COUNT 4.8 K/uL (1.8-6.4); PLATELET COUNT 144 K/uL (156-360); RBC DIS.WIDTH-CV 15.8 % (11.8-14.6); RBC DIS.WIDTH-SD 54.5 % (39-53); RED BLOOD COUNT 3.23 M/uL (4.00-5.50); WHITE BLOOD COUNT 5.9 K/uL (4.1-10.2)
[2017-03-13 07:50] LABS: ALKALINE PHOSPHATASE 69 IU/L (3-129); ANION GAP 7 MEQ/L (2-14); CHLORIDE 110 MEQ/L (99-109); GLUCOSE 222 mg/dL (70-99); MAGNESIUM 1.6 mg/dl (1.3-2.7); POTASSIUM 4.7 MEQ/L (3.7-5.4); SAMPLE HEMOLYSIS CHECK 0; SAMPLE ICTERIC CHECK 0; SAMPLE LIPEMIA CHECK 0; SODIUM 134 MEQ/L (136-147); UREA NITROGEN (BUN) 28 mg/dL (9-23)
[2017-03-13 07:53] LABS: GFR ESTIMATE (CALCULATED) 24 mL/min/; TOTAL BILIRUBIN 0.7 MG/DL (0.0-1.0)
[2017-03-13 08:15] VITALS: BP 144/68
[2017-03-13 15:10] VITALS: BP 138/64
[2017-03-13 19:40] VITALS: BP 145/66
[2017-03-13 21:29] LABS: POINT-OF-CARE METER ID UU14174225
[2017-03-13 22:59] VITALS: BP 167/87
[2017-03-14 06:16] LABS: EOSINOPHIL (%) 4.8 % (0-5); EOSINOPHIL COUNT 0.3 K/uL (0-0.3); IMMATURE GRANULOCYTE (%) 0.5 % (0.0-0.7); INSTRUMENT ABS NEUTROPHIL CT 4.9 K/uL; LYMPHOCYTE COUNT 0.3 K/uL (1.0-2.8); MCH 30.6 PG (29.0-34.0); MCHC 33.1 G/DL (30.0-36.0); MCV 92.4 FL (86-99); MEAN PLAT.VOLUME 9.8 uM^3 (9.0-12.4); MONOCYTE (%) 10.3 % (3-12); MONOCYTE COUNT 0.6 K/uL (0-0.8); NEUTROPHIL (%) 79.4 % (45-76); NEUTROPHIL COUNT 4.9 K/uL (1.8-6.4); PLATELET COUNT 148 K/uL (156-360); RBC DIS.WIDTH-CV 15.8 % (11.8-14.6); RBC DIS.WIDTH-SD 53.6 % (39-53); RED BLOOD COUNT 3.14 M/uL (4.00-5.50); WHITE BLOOD COUNT 6.1 K/uL (4.1-10.2)
[2017-03-14 06:59] LABS: ANION GAP 8 MEQ/L (2-14); CHLORIDE 109 MEQ/L (99-109); GFR ESTIMATE (CALCULATED) 19 mL/min/; GLUCOSE 236 mg/dL (70-99); SAMPLE HEMOLYSIS CHECK 0; SAMPLE ICTERIC CHECK 0; SAMPLE LIPEMIA CHECK 0; SODIUM 133 MEQ/L (136-147); UREA NITROGEN (BUN) 33 mg/dL (9-23)
[2017-03-14 07:44] LABS: POINT-OF-CARE METER ID UU14174225
[2017-03-14 07:56] VITALS: BP 169/79
[2017-03-14 12:09] LABS: POINT-OF-CARE METER ID UU14174225
[2017-03-14 15:16] VITALS: BP 164/68
[2017-03-14 16:54] LABS: POINT-OF-CARE METER ID UU14174225
[2017-03-14 17:54] LABS: ADD MIUA? YES; BILIRUBIN NEGATIVE; BLOOD MODERATE; COLOR YELLOW ((YELLOW)); GLUCOSE (STRIP) 50; KETONES NEGATIVE; LEUKOCYTES NEGATIVE; NITRITE NEGATIVE; PROTEIN (STRIP) 30; SPECIFIC GRAVITY 1.015 (1.000-1.030); UROBILINOGEN 0.2 MG/DL (0.2-1.0)
[2017-03-14 19:40] LABS: BACTERIA 3+ /HPF; EPITHELIAL CELLS RARE /HPF; MUCUS 1+ /LPF; WHITE BLOOD CELLS 0-5 /HPF (0-5)
[2017-03-14 19:41] LABS: AMORPHOUS URATES CRYSTALS 3+; CALCIUM OXALATE CRYSTALS 1+ /HPF; FINE GRANULAR CASTS 0-5 /LPF; HYALINE CASTS 0-5 /LPF
[2017-03-14 23:32] VITALS: BP 153/71
[2017-03-15 05:53] LABS: HEMATOCRIT 28.8 % (38.0-50.0); MCH 30.8 PG (29.0-34.0); MCHC 33.3 G/DL (30.0-36.0); MCV 92.3 FL (86-99); MEAN PLAT.VOLUME 9.9 uM^3 (9.0-12.4); PLATELET COUNT 139 K/uL (156-360); RBC DIS.WIDTH-CV 15.8 % (11.8-14.6); RBC DIS.WIDTH-SD 52.9 % (39-53); RED BLOOD COUNT 3.12 M/uL (4.00-5.50); WHITE BLOOD COUNT 6.7 K/uL (4.1-10.2)
[2017-03-15 06:21] LABS: ANION GAP 8 MEQ/L (2-14); CHLORIDE 108 MEQ/L (99-109); GFR ESTIMATE (CALCULATED) 17 mL/min/; GLUCOSE 270 mg/dL (70-99); POTASSIUM 4.9 MEQ/L (3.7-5.4); SAMPLE HEMOLYSIS CHECK 0; SAMPLE ICTERIC CHECK 0; SAMPLE LIPEMIA CHECK 0; SODIUM 132 MEQ/L (136-147); UREA NITROGEN (BUN) 38 mg/dL (9-23)
[2017-03-15 08:04] LABS: POINT-OF-CARE METER ID UU14174225
[2017-03-15 08:38] VITALS: BP 163/77
[2017-03-15 12:35] LABS: POINT-OF-CARE METER ID UU14174225
[2017-03-15 15:09] VITALS: BP 160/75
[2017-03-15 16:50] LABS: POINT-OF-CARE METER ID UU14174225
[2017-03-15 17:07] LABS: TYPE OF FLUID THORACENTESIS
[2017-03-15 18:15] LABS: BODY FLUID EOSINOPHILS 0 % (0-25); BODY FLUID RBC'S 2000 /MM^3 (0-100); BODY FLUID WBC'S 184 /MM^3 (0-500); COMMENT FEW MACROPHAGES SEEN; MONONUCLEAR WBC'S 84 %; POLYNUCLEAR WBC'S 16 % (0-25)
[2017-03-15 21:43] LABS: POINT-OF-CARE METER ID UU14188625
[2017-03-15 23:48] VITALS: BP 131/71
[2017-03-16 06:05] LABS: EOSINOPHIL (%) 3.3 % (0-5); EOSINOPHIL COUNT 0.3 K/uL (0-0.3); HEMATOCRIT 28.3 % (38.0-50.0); IMMATURE GRANULOCYTE (%) 0.5 % (0.0-0.7); INSTRUMENT ABS NEUTROPHIL CT 6.6 K/uL; LYMPHOCYTE COUNT 0.2 K/uL (1.0-2.8); MCHC 32.9 G/DL (30.0-36.0); MCV 91.3 FL (86-99); MEAN PLAT.VOLUME 9.4 uM^3 (9.0-12.4); MONOCYTE (%) 10.4 % (3-12); MONOCYTE COUNT 0.8 K/uL (0-0.8); NEUTROPHIL (%) 82.4 % (45-76); NEUTROPHIL COUNT 6.6 K/uL (1.8-6.4); PLATELET COUNT 156 K/uL (156-360); RBC DIS.WIDTH-CV 15.7 % (11.8-14.6); RBC DIS.WIDTH-SD 52.8 % (39-53)
[2017-03-16 06:32] LABS: ANION GAP 8 MEQ/L (2-14); CHLORIDE 108 MEQ/L (99-109); GFR ESTIMATE (CALCULATED) 15 mL/min/; GLUCOSE 202 mg/dL (70-99); POTASSIUM 4.9 MEQ/L (3.7-5.4); SAMPLE HEMOLYSIS CHECK 0; SAMPLE ICTERIC CHECK 0; SAMPLE LIPEMIA CHECK 0; SODIUM 131 MEQ/L (136-147); UREA NITROGEN (BUN) 42 mg/dL (9-23)
[2017-03-16 07:41] VITALS: BP 147/65
[2017-03-16 11:16] LABS: POINT-OF-CARE METER ID UU14188625
[2017-03-16 11:18] VITALS: BP 133/61
[2017-03-16 16:51] LABS: POINT-OF-CARE METER ID UU14188625
[2017-03-16 17:27] VITALS: BP 140/66
[2017-03-16 21:32] LABS: POINT-OF-CARE METER ID UU14188625
[2017-03-16 23:37] VITALS: BP 137/72
[2017-03-17 06:52] LABS: HEMATOCRIT 26.7 % (38.0-50.0); MCH 30.9 PG (29.0-34.0); MCHC 33.7 G/DL (30.0-36.0); MCV 91.8 FL (86-99); MEAN PLAT.VOLUME 9.2 uM^3 (9.0-12.4); PLATELET COUNT 153 K/uL (156-360); RBC DIS.WIDTH-SD 54.3 % (39-53); RED BLOOD COUNT 2.91 M/uL (4.00-5.50); WHITE BLOOD COUNT 7.1 K/uL (4.1-10.2)
[2017-03-17 07:13] LABS: ANION GAP 8 MEQ/L (2-14); CHLORIDE 107 MEQ/L (99-109); GFR ESTIMATE (CALCULATED) 14 mL/min/; GLUCOSE 221 mg/dL (70-99); POTASSIUM 5.1 MEQ/L (3.7-5.4); SAMPLE HEMOLYSIS CHECK 0; SAMPLE ICTERIC CHECK 0; SAMPLE LIPEMIA CHECK 0; SODIUM 132 MEQ/L (136-147); UREA NITROGEN (BUN) 47 mg/dL (9-23)
[2017-03-17 07:43] LABS: POINT-OF-CARE METER ID UU13113717
[2017-03-17 07:56] VITALS: BP 148/70
[2017-03-17 11:28] VITALS: BP 121/65
[2017-03-17 11:53] LABS: POINT-OF-CARE METER ID UU14188625
[2017-03-17 16:20] VITALS: BP 136/69
[2017-03-17 17:13] LABS: POINT-OF-CARE METER ID UU13113717
[2017-03-17 21:28] LABS: POINT-OF-CARE METER ID UU14174225
[2017-03-18 00:18] VITALS: BP 151/65
[2017-03-18 06:03] LABS: HEMATOCRIT 26.5 % (38.0-50.0); MCH 29.4 PG (29.0-34.0); MCHC 32.1 G/DL (30.0-36.0); MCV 91.7 FL (86-99); MEAN PLAT.VOLUME 9.4 uM^3 (9.0-12.4); PLATELET COUNT 154 K/uL (156-360); RBC DIS.WIDTH-CV 15.9 % (11.8-14.6); RBC DIS.WIDTH-SD 53.5 % (39-53); RED BLOOD COUNT 2.89 M/uL (4.00-5.50); WHITE BLOOD COUNT 6.3 K/uL (4.1-10.2)
[2017-03-18 06:24] LABS: ANION GAP 9 MEQ/L (2-14); CHLORIDE 109 MEQ/L (99-109); GFR ESTIMATE (CALCULATED) 12 mL/min/; GLUCOSE 184 mg/dL (70-99); POTASSIUM 5.2 MEQ/L (3.7-5.4); SAMPLE HEMOLYSIS CHECK 0; SAMPLE ICTERIC CHECK 0; SAMPLE LIPEMIA CHECK 0; SODIUM 133 MEQ/L (136-147); UREA NITROGEN (BUN) 52 mg/dL (9-23)
[2017-03-18 08:06] LABS: POINT-OF-CARE METER ID UU13113717
[2017-03-18 12:31] LABS: POINT-OF-CARE METER ID UU14174225
[2017-03-18 16:04] VITALS: BP 142/62
[2017-03-18 17:01] LABS: POINT-OF-CARE METER ID UU13113717
[2017-03-18 21:22] LABS: POINT-OF-CARE METER ID UU14174225
[2017-03-18 21:38] LABS: BODY FLUID PH 7.6 (())
[2017-03-18 23:39] VITALS: BP 139/70
[2017-03-19 06:06] LABS: HEMATOCRIT 25.8 % (38.0-50.0); MCH 29.5 PG (29.0-34.0); MCHC 32.2 G/DL (30.0-36.0); MCV 91.8 FL (86-99); MEAN PLAT.VOLUME 9.5 uM^3 (9.0-12.4); PLATELET COUNT 155 K/uL (156-360); RBC DIS.WIDTH-CV 15.9 % (11.8-14.6); RBC DIS.WIDTH-SD 54.4 % (39-53); RED BLOOD COUNT 2.81 M/uL (4.00-5.50); WHITE BLOOD COUNT 6.2 K/uL (4.1-10.2)
[2017-03-19 06:22] LABS: ANION GAP 9 MEQ/L (2-14); CHLORIDE 108 MEQ/L (99-109); GFR ESTIMATE (CALCULATED) 12 mL/min/; GLUCOSE 171 mg/dL (70-99); POTASSIUM 5.3 MEQ/L (3.7-5.4); SAMPLE HEMOLYSIS CHECK 0; SAMPLE ICTERIC CHECK 0; SAMPLE LIPEMIA CHECK 0; SODIUM 132 MEQ/L (136-147); UREA NITROGEN (BUN) 57 mg/dL (9-23)
[2017-03-19 07:42] VITALS: BP 131/67
[2017-03-19 15:21] VITALS: BP 142/71
[2017-03-19 17:24] LABS: POINT-OF-CARE METER ID UU14188625
[2017-03-19 19:55] VITALS: BP 155/68
[2017-03-19 21:12] LABS: POINT-OF-CARE METER ID UU13113717
[2017-03-19 23:34] VITALS: BP 146/62
[2017-03-20 07:02] LABS: ANION GAP 9 MEQ/L (2-14); CHLORIDE 109 MEQ/L (99-109); GFR ESTIMATE (CALCULATED) 11 mL/min/; GLUCOSE 143 mg/dL (70-99); POTASSIUM 5.6 MEQ/L (3.7-5.4); SAMPLE HEMOLYSIS CHECK 0; SAMPLE ICTERIC CHECK 0; SAMPLE LIPEMIA CHECK 0; SODIUM 135 MEQ/L (136-147); UREA NITROGEN (BUN) 61 mg/dL (9-23)
[2017-03-20 08:14] LABS: POINT-OF-CARE METER ID UU14188625
[2017-03-20 08:19] VITALS: BP 145/63
[2017-03-20 13:09] LABS: HBSG INDEX 0.23
[2017-03-20 13:10] LABS: HPCA INDEX 0.14
[2017-03-20 13:11] LABS: AHBS INDEX 0.79; ANTI-HEPATITIS B CORE (TOTAL) Nonreactive; HEPATITIS B SURFACE ANTIBODY Nonreactive
[2017-03-20 13:51] LABS: EOSINOPHIL (%) 2.8 % (0-5); EOSINOPHIL COUNT 0.2 K/uL (0-0.3); HEMATOCRIT 24.4 % (38.0-50.0); IMMATURE GRANULOCYTE (%) 0.7 % (0.0-0.7); INSTRUMENT ABS NEUTROPHIL CT 4.2 K/uL; LYMPHOCYTE COUNT 0.2 K/uL (1.0-2.8); MCH 29.7 PG (29.0-34.0); MCHC 32.8 G/DL (30.0-36.0); MCV 90.7 FL (86-99); MONOCYTE COUNT 0.7 K/uL (0-0.8); NEUTROPHIL (%) 78.3 % (45-76); NEUTROPHIL COUNT 4.2 K/uL (1.8-6.4); PLATELET COUNT 142 K/uL (156-360); RBC DIS.WIDTH-CV 16.1 % (11.8-14.6); RBC DIS.WIDTH-SD 53.3 % (39-53); RED BLOOD COUNT 2.69 M/uL (4.00-5.50); WHITE BLOOD COUNT 5.4 K/uL (4.1-10.2)
[2017-03-20 16:12] VITALS: BP 128/65
[2017-03-20 16:51] LABS: POINT-OF-CARE METER ID UU13113717
[2017-03-20 17:41] LABS: HEMATOCRIT 26.2 % (38.0-50.0); MCV 91.6 FL (86-99)
[2017-03-20 21:20] LABS: POINT-OF-CARE METER ID UU14188625
[2017-03-20 22:36] LABS: HEMATOCRIT 24.1 % (38.0-50.0); MCV 90.6 FL (86-99)
[2017-03-20 23:43] VITALS: BP 133/72
[2017-03-21 05:16] LABS: CHLORIDE 104 mEq/L (99-109); POTASSIUM 5.1 mEq/L (3.7-5.4); SODIUM 134 mEq/L (136-147)
[2017-03-21 05:18] LABS: GLUCOSE 137 mg/dL (70-99)
[2017-03-21 05:19] LABS: ANION GAP 9 MEQ/L (2-14)
[2017-03-21 05:21] LABS: GFR ESTIMATE (CALCULATED) 13 mL/min/
[2017-03-21 05:22] LABS: UREA NITROGEN (BUN) 49 mg/dL (9-23)
[2017-03-21 05:24] LABS: EOSINOPHIL (%) 4.3 % (0-5); EOSINOPHIL COUNT 0.2 K/uL (0-0.3); HEMATOCRIT 24.8 % (38.0-50.0); IMMATURE GRANULOCYTE (%) 0.6 % (0.0-0.7); LYMPHOCYTE COUNT 0.3 K/uL (1.0-2.8); MCH 29.4 PG (29.0-34.0); MCHC 32.3 G/DL (30.0-36.0); MCV 91.2 FL (86-99); MEAN PLAT.VOLUME 10.1 uM^3 (9.0-12.4); MONOCYTE (%) 13.9 % (3-12); MONOCYTE COUNT 0.8 K/uL (0-0.8); NEUTROPHIL (%) 74.4 % (45-76); PLATELET COUNT 152 K/uL (156-360); RBC DIS.WIDTH-CV 15.9 % (11.8-14.6); RBC DIS.WIDTH-SD 53.1 % (39-53); RED BLOOD COUNT 2.72 M/uL (4.00-5.50); WHITE BLOOD COUNT 5.4 K/uL (4.1-10.2)
[2017-03-21 05:44] LABS: POINT-OF-CARE METER ID UU14188625
[2017-03-21 10:31] LABS: HEMATOCRIT 24.7 % (38.0-50.0); MCV 91.8 FL (86-99)
[2017-03-21 12:12] LABS: POINT-OF-CARE METER ID UU13113717
[2017-03-21 15:59] VITALS: BP 120/65
[2017-03-21 17:09] LABS: POINT-OF-CARE METER ID UU13113717
[2017-03-21 21:35] LABS: POINT-OF-CARE METER ID UU13113717
[2017-03-21 23:23] VITALS: BP 133/58
[2017-03-22 04:16] LABS: EOSINOPHIL (%) 3.5 % (0-5); EOSINOPHIL COUNT 0.2 K/uL (0-0.3); HEMATOCRIT 23.3 % (38.0-50.0); IMMATURE GRANULOCYTE (%) 0.6 % (0.0-0.7); INSTRUMENT ABS NEUTROPHIL CT 4.1 K/uL; LYMPHOCYTE COUNT 0.3 K/uL (1.0-2.8); MCH 29.9 PG (29.0-34.0); MCHC 32.6 G/DL (30.0-36.0); MCV 91.7 FL (86-99); MEAN PLAT.VOLUME 9.7 uM^3 (9.0-12.4); MONOCYTE (%) 14.6 % (3-12); MONOCYTE COUNT 0.8 K/uL (0-0.8); NEUTROPHIL (%) 75.2 % (45-76); NEUTROPHIL COUNT 4.1 K/uL (1.8-6.4); PLATELET COUNT 140 K/uL (156-360); RBC DIS.WIDTH-CV 15.9 % (11.8-14.6); RBC DIS.WIDTH-SD 52.2 % (39-53); RED BLOOD COUNT 2.54 M/uL (4.00-5.50); WHITE BLOOD COUNT 5.4 K/uL (4.1-10.2)
[2017-03-22 04:18] LABS: HEMATOCRIT 23.7 % (38.0-50.0); MCV 91.5 FL (86-99)
[2017-03-22 04:29] LABS: CHLORIDE 100 mEq/L (99-109); POTASSIUM 4.8 mEq/L (3.7-5.4); SODIUM 131 mEq/L (136-147)
[2017-03-22 04:30] LABS: GLUCOSE 127 mg/dL (70-99)
[2017-03-22 04:32] LABS: ANION GAP 8 MEQ/L (2-14)
[2017-03-22 04:34] LABS: GFR ESTIMATE (CALCULATED) 16 mL/min/
[2017-03-22 04:35] LABS: UREA NITROGEN (BUN) 38 mg/dL (9-23)
[2017-03-22 09:00] VITALS: BP 129/62
[2017-03-22 09:48] LABS: HEMATOCRIT 24.7 % (38.0-50.0); MCH 29.9 PG (29.0-34.0); MCV 93.6 FL (86-99); PLATELET COUNT 133 K/uL (156-360); RBC DIS.WIDTH-CV 16.2 % (11.8-14.6); RBC DIS.WIDTH-SD 55.8 % (39-53); RED BLOOD COUNT 2.64 M/uL (4.00-5.50); WHITE BLOOD COUNT 5.4 K/uL (4.1-10.2)
[2017-03-22 12:00] VITALS: BP 121/59
[2017-03-22 12:09] LABS: POINT-OF-CARE METER ID UU14188625
[2017-03-22 12:49] VITALS: BP 121/59
[2017-03-22 16:15] LABS: HEMATOCRIT 25.1 % (38.0-50.0); MCV 92.3 FL (86-99)
[2017-03-22 17:56] VITALS: BP 102/52
[2017-03-22 18:02] LABS: POINT-OF-CARE METER ID UU13113717
[2017-03-22 21:18] LABS: POINT-OF-CARE METER ID UU13113717
[2017-03-22 23:19] VITALS: BP 133/63
[2017-03-23 05:45] LABS: HEMATOCRIT 24.2 % (38.0-50.0); MCV 91.3 FL (86-99)
[2017-03-23 07:41] VITALS: BP 143/71
[2017-03-23 10:02] LABS: HEMATOCRIT 26.2 % (38.0-50.0); MCV 92.9 FL (86-99)
[2017-03-23 10:32] LABS: ANION GAP 11 MEQ/L (2-14); CHLORIDE 99 MEQ/L (99-109); GFR ESTIMATE (CALCULATED) 20 mL/min/; GLUCOSE 151 mg/dL (70-99); POTASSIUM 4.6 MEQ/L (3.7-5.4); SAMPLE HEMOLYSIS CHECK 0; SAMPLE ICTERIC CHECK 0; SAMPLE LIPEMIA CHECK 0; SODIUM 136 MEQ/L (136-147); UREA NITROGEN (BUN) 28 mg/dL (9-23)
[2017-03-23 14:09] LABS: HEMATOCRIT 25.9 % (38.0-50.0); MCHC 32.4 G/DL (30.0-36.0); MCV 92.5 FL (86-99); MEAN PLAT.VOLUME 10.3 uM^3 (9.0-12.4); PLATELET COUNT 132 K/uL (156-360); RBC DIS.WIDTH-SD 54.6 % (39-53); WHITE BLOOD COUNT 5.7 K/uL (4.1-10.2)
[2017-03-23 16:27] LABS: HEMATOCRIT 26.7 % (38.0-50.0); MCV 92.7 FL (86-99)
[2017-03-23 16:49] LABS: INTER. NORMALIZED RATIO 1.1; PROTHROMBIN TIME 12.6 SEC (10.2-12.9)
[2017-03-23 16:52] LABS: PTT 30.4 SEC (25-37)
[2017-03-23 17:35] LABS: POINT-OF-CARE METER ID UU13113717
[2017-03-23 21:10] VITALS: BP 139/67
[2017-03-23 21:38] LABS: POINT-OF-CARE METER ID UU13113717
[2017-03-23 21:56] LABS: HEMATOCRIT 25.7 % (38.0-50.0); MCV 91.8 FL (86-99)
[2017-03-24 05:08] LABS: HEMATOCRIT 23.2 % (38.0-50.0); MCV 91.7 FL (86-99)
[2017-03-24 05:10] LABS: HEMATOCRIT 23.2 % (38.0-50.0); MCH 29.4 PG (29.0-34.0); MCHC 32.3 G/DL (30.0-36.0); PLATELET COUNT 134 K/uL (156-360); RBC DIS.WIDTH-CV 15.8 % (11.8-14.6); RBC DIS.WIDTH-SD 52.5 % (39-53); RED BLOOD COUNT 2.55 M/uL (4.00-5.50); WHITE BLOOD COUNT 5.1 K/uL (4.1-10.2)
[2017-03-24 05:46] LABS: ALKALINE PHOSPHATASE 118 IU/L (3-129); ANION GAP 8 MEQ/L (2-14); ANION GAP 9 MEQ/L (2-14); CHLORIDE 100 MEQ/L (99-109); CHLORIDE 99 MEQ/L (99-109); GFR ESTIMATE (CALCULATED) 17 mL/min/; GFR ESTIMATE (CALCULATED) 19 mL/min/; GLUCOSE 89 mg/dL (70-99); GLUCOSE 90 mg/dL (70-99); POTASSIUM 4.7 MEQ/L (3.7-5.4); POTASSIUM 4.8 MEQ/L (3.7-5.4); SAMPLE HEMOLYSIS CHECK 0; SAMPLE ICTERIC CHECK 0; SAMPLE LIPEMIA CHECK 0; SODIUM 134 MEQ/L (136-147); SODIUM 135 MEQ/L (136-147); TOTAL BILIRUBIN 0.7 MG/DL (0.0-1.0); UREA NITROGEN (BUN) 34 mg/dL (9-23); UREA NITROGEN (BUN) 35 mg/dL (9-23)
[2017-03-24 07:45] VITALS: BP 134/69
[2017-03-24 07:46] LABS: POINT-OF-CARE METER ID UU14174225
[2017-03-24 10:28] LABS: HEMATOCRIT 25.4 % (38.0-50.0); MCV 92.7 FL (86-99)
[2017-03-24 16:01] VITALS: BP 140/72
[2017-03-24 16:58] LABS: HEMATOCRIT 25.5 % (38.0-50.0); MCV 92.1 FL (86-99)
[2017-03-24 18:57] VITALS: BP 152/78
[2017-03-24 21:41] LABS: POINT-OF-CARE METER ID UU14174225
[2017-03-24 22:15] LABS: HEMATOCRIT 24.2 % (38.0-50.0); MCV 91.3 FL (86-99)
[2017-03-25 05:38] LABS: EOSINOPHIL (%) 3.7 % (0-5); EOSINOPHIL COUNT 0.3 K/uL (0-0.3); HEMATOCRIT 22.9 % (38.0-50.0); IMMATURE GRANULOCYTE (%) 0.6 % (0.0-0.7); INSTRUMENT ABS NEUTROPHIL CT 5.2 K/uL; LYMPHOCYTE COUNT 0.3 K/uL (1.0-2.8); MCH 29.1 PG (29.0-34.0); MCHC 32.3 G/DL (30.0-36.0); MCV 90.2 FL (86-99); MEAN PLAT.VOLUME 10.5 uM^3 (9.0-12.4); MONOCYTE COUNT 0.9 K/uL (0-0.8); NEUTROPHIL (%) 76.7 % (45-76); NEUTROPHIL COUNT 5.2 K/uL (1.8-6.4); PLATELET COUNT 121 K/uL (156-360); RBC DIS.WIDTH-CV 15.5 % (11.8-14.6); RBC DIS.WIDTH-SD 52.1 % (39-53); RED BLOOD COUNT 2.54 M/uL (4.00-5.50); WHITE BLOOD COUNT 6.7 K/uL (4.1-10.2)
[2017-03-25 06:07] LABS: INTER. NORMALIZED RATIO 1.2; PROTHROMBIN TIME 13.3 SEC (10.2-12.9)
[2017-03-25 06:10] LABS: PTT 31.1 SEC (25-37)
[2017-03-25 06:21] LABS: ANION GAP 8 MEQ/L (2-14); CHLORIDE 99 MEQ/L (99-109); GFR ESTIMATE (CALCULATED) 16 mL/min/; POTASSIUM 4.7 MEQ/L (3.7-5.4); SAMPLE HEMOLYSIS CHECK 0; SAMPLE ICTERIC CHECK 0; SAMPLE LIPEMIA CHECK 0; SODIUM 133 MEQ/L (136-147); UREA NITROGEN (BUN) 40 mg/dL (9-23)
[2017-03-25 06:22] LABS: ALKALINE PHOSPHATASE 103 IU/L (3-129); ANION GAP 8 MEQ/L (2-14); CHLORIDE 98 MEQ/L (99-109); GFR ESTIMATE (CALCULATED) 16 mL/min/; POTASSIUM 4.7 MEQ/L (3.7-5.4); SAMPLE HEMOLYSIS CHECK 0; SAMPLE ICTERIC CHECK 0; SAMPLE LIPEMIA CHECK 0; SODIUM 132 MEQ/L (136-147); TOTAL BILIRUBIN 0.6 MG/DL (0.0-1.0); UREA NITROGEN (BUN) 40 mg/dL (9-23)
[2017-03-25 06:24] LABS: GLUCOSE 56 mg/dL (70-99)
[2017-03-25 07:41] LABS: POINT-OF-CARE METER ID UU14188625
[2017-03-25 07:59] VITALS: BP 125/65
[2017-03-25 10:59] LABS: MCV 92.3 FL (86-99)
[2017-03-25 11:44] LABS: POINT-OF-CARE METER ID UU14174225
[2017-03-25 16:11] VITALS: BP 139/67
[2017-03-25 17:06] LABS: HEMATOCRIT 27.6 % (38.0-50.0); MCV 90.2 FL (86-99)
[2017-03-25 17:11] LABS: POINT-OF-CARE METER ID UU14174225
[2017-03-25 21:07] LABS: POINT-OF-CARE METER ID UU14188625
[2017-03-25 21:44] VITALS: BP 143/64
[2017-03-25 22:09] LABS: HEMATOCRIT 27.1 % (38.0-50.0); MCV 88.9 FL (86-99)
[2017-03-25 23:13] VITALS: BP 131/61
[2017-03-26 07:24] LABS: BASOPHIL COUNT 0.1 K/uL (0-0.1); EOSINOPHIL (%) 4.1 % (0-5); EOSINOPHIL COUNT 0.2 K/uL (0-0.3); HEMATOCRIT 27.8 % (38.0-50.0); IMMATURE GRANULOCYTE (%) 0.7 % (0.0-0.7); INSTRUMENT ABS NEUTROPHIL CT 4.1 K/uL; LYMPHOCYTE COUNT 0.3 K/uL (1.0-2.8); MCH 28.9 PG (29.0-34.0); MCHC 32.4 G/DL (30.0-36.0); MCV 89.4 FL (86-99); MONOCYTE (%) 15.1 % (3-12); MONOCYTE COUNT 0.8 K/uL (0-0.8); NEUTROPHIL (%) 74.2 % (45-76); NEUTROPHIL COUNT 4.1 K/uL (1.8-6.4); RBC DIS.WIDTH-CV 16.4 % (11.8-14.6); RBC DIS.WIDTH-SD 53.9 % (39-53); RED BLOOD COUNT 3.11 M/uL (4.00-5.50); WHITE BLOOD COUNT 5.6 K/uL (4.1-10.2)
[2017-03-26 07:31] LABS: ALKALINE PHOSPHATASE 109 IU/L (3-129); ANION GAP 9 MEQ/L (2-14); CHLORIDE 102 MEQ/L (99-109); POTASSIUM 4.9 MEQ/L (3.7-5.4); SAMPLE HEMOLYSIS CHECK 0; SAMPLE ICTERIC CHECK 0; SAMPLE LIPEMIA CHECK 0; SODIUM 137 MEQ/L (136-147); UREA NITROGEN (BUN) 31 mg/dL (9-23)
[2017-03-26 07:34] LABS: GFR ESTIMATE (CALCULATED) 21 mL/min/; GLUCOSE 98 mg/dL (70-99); TOTAL BILIRUBIN 0.9 MG/DL (0.0-1.0)
[2017-03-26 08:37] VITALS: BP 128/66
[2017-03-26 08:40] LABS: PLAT.SUFFICIENCY ADEQUATE; PLATELET CLUMPS PRESENT - PLATELET COUNT APPEARS ADQ.
[2017-03-26 08:41] LABS: PLATELET COUNT UNABLE TO REPORT K/uL (156-360)
[2017-03-26 11:46] LABS: POINT-OF-CARE METER ID UU13113717
[2017-03-26] MEDS ORDERED: LEVEMIR100 UNIT/2 SC (16:25)
[2017-03-26] MEDS ORDERED: JANUVIA25 MG PO (16:25)
[2017-03-26] MEDS ORDERED: LOPRESSOR25 MG PO (16:25)
== END 2017-03-26 17:40 | disposition home health service (06) | DRG 871 ==
LOC: EME 13:06 → 5SOUTH 18:04 → EDOF 18:04 → 5SOUTH 21:02
PROVIDERS: Hospitalist; Internal Medicine; Internal Medicine Nephrology; Nurse Practitioner Adult Health; Physician Assistant Medical
PROC: 30233N1 Transfusion of Nonautologous Red Blood Cells into Peripheral Vein, Percutaneous Approach (ICD-10-PCS; principal; 2017-03-08)
PROC: 0W9G3ZZ Drainage of Peritoneal Cavity, Percutaneous Approach (ICD-10-PCS; principal; 2017-03-08)
PROC: 0W9G3ZZ Drainage of Peritoneal Cavity, Percutaneous Approach (ICD-10-PCS; 2017-03-18)
PROC: 02HV33Z Insertion of Infusion Device into Superior Vena Cava, Percutaneous Approach (ICD-10-PCS; 2017-03-19)
PROC: B548ZZA Ultrasonography of Superior Vena Cava, Guidance (ICD-10-PCS; 2017-03-19)
PROC: 5A1D60Z (ICD-10-PCS; 2017-03-20)
PROC: B548ZZA Ultrasonography of Superior Vena Cava, Guidance (ICD-10-PCS; 2017-03-26)
PROC: 0W9G3ZZ Drainage of Peritoneal Cavity, Percutaneous Approach (ICD-10-PCS; 2017-03-26)
PROC: 02HV33Z Insertion of Infusion Device into Superior Vena Cava, Percutaneous Approach (ICD-10-PCS; 2017-03-26)
PROC: B5181ZA Fluoroscopy of Superior Vena Cava using Low Osmolar Contrast, Guidance (ICD-10-PCS; 2017-03-26)
DX: A41.9 Sepsis, unspecified organism (principal); N17.0 Acute kidney failure with tubular necrosis; L89.309 Pressure ulcer of unspecified buttock, unspecified stage; I13.2 Hypertensive heart and chronic kidney disease with heart failure and with stage 5 chronic kidney disease, or end stage renal disease; L89.159 Pressure ulcer of sacral region, unspecified stage; K80.00 Calculus of gallbladder with acute cholecystitis without obstruction; J90 Pleural effusion, not elsewhere classified; E87.1 Hypo-osmolality and hyponatremia; E87.2 Acidosis; N18.6 End stage renal disease; E11.22 Type 2 diabetes mellitus with diabetic chronic kidney disease; E11.65 Type 2 diabetes mellitus with hyperglycemia; R18.8 Other ascites; I25.810 Atherosclerosis of coronary artery bypass graft(s) without angina pectoris; E87.5 Hyperkalemia; D69.6 Thrombocytopenia, unspecified; K76.6 Portal hypertension; K57.00 Diverticulitis of small intestine with perforation and abscess without bleeding; I48.2 Chronic atrial fibrillation; Z87.442 Personal history of urinary calculi; I50.9 Heart failure, unspecified; C18.9 Malignant neoplasm of colon, unspecified; K82.8 Other specified diseases of gallbladder; R65.20 Severe sepsis without septic shock; D63.8 Anemia in other chronic diseases classified elsewhere; R33.9 Retention of urine, unspecified; K75.81 Nonalcoholic steatohepatitis (NASH); K74.60 Unspecified cirrhosis of liver; E66.9 Obesity, unspecified; E78.5 Hyperlipidemia, unspecified; K57.10 Diverticulosis of small intestine without perforation or abscess without bleeding; T36.8X5A Adverse effect of other systemic antibiotics, initial encounter; R19.7 Diarrhea, unspecified; R51 Headache; J98.11 Atelectasis; Z92.21 Personal history of antineoplastic chemotherapy; Z85.038 Personal history of other malignant neoplasm of large intestine; Z79.82 Long term (current) use of aspirin; Z99.2 Dependence on renal dialysis; Z79.4 Long term (current) use of insulin; Z87.891 Personal history of nicotine dependence; Z90.49 Acquired absence of other specified parts of digestive tract; Z95.1 Presence of aortocoronary bypass graft; Z68.28 Body mass index [BMI] 28.0-28.9, adult; Z82.3 Family history of stroke
CPT/HCPCS: 49083; 71010; 71020; 74000; 74177; 76705; 76770; 80048; 80053; 80069; 80202; 81003; 82140; 82565; 82728; 82948; 83540; 83605; 83690; 83735; 83986 90; 84100; 84466; 84520; 85014; 85018; 85025; 85027; 85610; 85730; 86704; 86706; 86803; 86900; 86901; 86920; 87040; 87070; 87075; 87205; 87340; 89051; 93005; 94640; 94640 76; 94799; 97530 GP; 99202; 99281; 99285; C1750; C1752; C9113; J0690; J0696; J1644; J1815; J1940; J2250; J2270; J2543; J3010; J3370; J7030; J7050; J7120; P9016; P9047; S0020

== ENCOUNTER 2017-03-27 15:27 | Emergency (ER) | payer OTHER ==
[~2017-03-27] VITALS: Ht 177.8 cm; Wt 109.0 kg
[~2017-03-27 15:27] MED LIST changes: +JANUVIA25 MG PO; +SANTYL30 GM TP
[2017-03-27 15:35] VITALS: BP 128/62
[2017-03-27 17:44] LABS: POINT-OF-CARE METER ID UU13113702
[2017-04-01] MEDS ORDERED: LEVEMIR100 UNIT/2 SC (13:10)
== END 2017-03-27 18:37 | disposition left against medical advice (07) ==
LOC: EME 15:27
PROVIDERS: Physician Assistant
PROC: 3E0234Z Introduction of Serum, Toxoid and Vaccine into Muscle, Percutaneous Approach (ICD-10-PCS; principal; 2017-03-27)
DX: S00.81XA Abrasion of other part of head, initial encounter (principal); W10.1XXA Fall (on)(from) sidewalk curb, initial encounter; Y92.510 Bank as the place of occurrence of the external cause; I48.91 Unspecified atrial fibrillation; I11.0 Hypertensive heart disease with heart failure; I50.9 Heart failure, unspecified; E11.9 Type 2 diabetes mellitus without complications; E78.5 Hyperlipidemia, unspecified; Z95.1 Presence of aortocoronary bypass graft; Z85.038 Personal history of other malignant neoplasm of large intestine; Z87.891 Personal history of nicotine dependence; Z23 Encounter for immunization
CPT/HCPCS: 82948; 99281; 99283

== ENCOUNTER → 2017-04-01 | Outpatient (CLI) | payer OTHER | END | disposition home or self-care (01) | LOC: RAD 12:40 | PROC: 0W9G3ZZ Drainage of Peritoneal Cavity, Percutaneous Approach (ICD-10-PCS; principal; 2017-04-01) | DX: R18.8 Other ascites (principal); K74.60 Unspecified cirrhosis of liver | CPT/HCPCS: 49083; P9047 ==

== ENCOUNTER → 2017-04-08 | Outpatient (CLI) | payer OTHER | END | disposition home or self-care (01) | LOC: RAD 03-13 13:30 | PROC: 0W9G3ZZ Drainage of Peritoneal Cavity, Percutaneous Approach (ICD-10-PCS; principal; 2017-04-08) | DX: R18.8 Other ascites (principal); K74.60 Unspecified cirrhosis of liver | CPT/HCPCS: 49083; P9047 ==

== ENCOUNTER 2017-04-11 11:40 | Inpatient (IN) | payer OTHER ==
[~2017-04-11] VITALS: Ht 177.8 cm; Wt 99.0 kg
[2017-04-11 13:01] LABS: EOSINOPHIL (%) 0 % (0-5); HEMATOCRIT 19.7 % (38.0-50.0); IMMATURE GRANULOCYTE COUNT 0.1 K/uL; INSTRUMENT ABS NEUTROPHIL CT 11.4 K/uL; LYMPHOCYTE COUNT 0.4 K/uL (1.0-2.8); MCH 29.6 PG (29.0-34.0); MCHC 30.5 G/DL (30.0-36.0); MEAN PLAT.VOLUME 9.3 uM^3 (9.0-12.4); MONOCYTE (%) 7.5 % (3-12); NEUTROPHIL (%) 88.6 % (45-76); NEUTROPHIL COUNT 11.4 K/uL (1.8-6.4); RBC DIS.WIDTH-CV 16.8 % (11.8-14.6); RBC DIS.WIDTH-SD 57.3 % (39-53); RED BLOOD COUNT 2.03 M/uL (4.00-5.50); WHITE BLOOD COUNT 12.9 K/uL (4.1-10.2)
[2017-04-11 13:02] LABS: PLATELET COUNT 169 K/uL (156-360)
[2017-04-11 13:04] LABS: CHLORIDE 87 mEq/L (99-109); INTER. NORMALIZED RATIO 1.5; PROTHROMBIN TIME 16.6 SEC (10.2-12.9); SODIUM 130 mEq/L (136-147)
[2017-04-11 13:06] LABS: PTT 33.6 SEC (25-37)
[2017-04-11 13:07] LABS: GLUCOSE 230 mg/dL (70-99)
[2017-04-11 13:08] LABS: ANION GAP 33 MEQ/L (2-14)
[2017-04-11 13:09] LABS: TOTAL BILIRUBIN 0.5 mg/dL (0.0-1.0)
[2017-04-11 13:10] LABS: ALKALINE PHOSPHATASE 94 IU/L (3-129)
[2017-04-11 13:11] LABS: GFR ESTIMATE (CALCULATED) 8 mL/min/
[2017-04-11 13:12] LABS: DIRECT BILIRUBIN 0.3 mg/dL (0.0-0.3)
[2017-04-11 13:13] LABS: POTASSIUM 6.8 mEq/L (3.7-5.4); UREA NITROGEN (BUN) 120 mg/dL (9-23)
[2017-04-11 13:17] LABS: TROP-I INTERPRETATION NEGATIVE; TROPONIN-I 0.04 ng/mL (0.0-0.30)
[2017-04-11 14:24] LABS: ADD MIUA? YES; BILIRUBIN NEGATIVE; BLOOD MODERATE; COLOR YELLOW ((YELLOW)); GLUCOSE (STRIP) 150; KETONES 5; LEUKOCYTES MODERATE; NITRITE NEGATIVE; PROTEIN (STRIP) 100; SPECIFIC GRAVITY 1.016 (1.000-1.030); UROBILINOGEN 0.2 MG/DL (0.2-1.0)
[2017-04-11 14:47] LABS: BACTERIA 1+ /HPF; EPITHELIAL CELLS RARE /HPF; HYALINE CASTS 40-50 /LPF; MUCUS TRACE /LPF; RED BLOOD CELLS 15-20 /HPF (0-5); UCUL ADDED? YES; WHITE BLOOD CELLS 20-30 /HPF (0-5); WHITE BLOOD CELLS CLUMP MOD /HPF (0-5)
[2017-04-11] MEDS ORDERED: JANUVIA25 MG PO (17:05)
[2017-04-11] MEDS ORDERED: METFORMIN HCL1000 MG PO (17:06)
[2017-04-11 20:30] VITALS: BP 103/47
[2017-04-11 21:00] VITALS: BP 108/48
[2017-04-11 22:00] VITALS: BP 106/50
[2017-04-11 22:11] LABS: METH RESISTANT S AUREUS PCR NEGATIVE (NEGATIVE)
[2017-04-11 22:12] LABS: PROBE CHECK PASS; SPECIMEN PROCESSING CONTROL PASS
[2017-04-11 23:00] VITALS: BP 110/50
[2017-04-12] VITALS (34 sets, daily range): BP systolic 82–124; BP diastolic 40–446
[2017-04-12 00:57] LABS: INTER. NORMALIZED RATIO 1.5; PROTHROMBIN TIME 17.2 SEC (10.2-12.9)
[2017-04-12 01:09] LABS: MCHC 33.8 G/DL (30.0-36.0); MCV 88.6 FL (86-99); MEAN PLAT.VOLUME 9.7 uM^3 (9.0-12.4); PLATELET COUNT 88 K/uL (156-360); RBC DIS.WIDTH-SD 49.8 % (39-53); RED BLOOD COUNT 2.37 M/uL (4.00-5.50); WHITE BLOOD COUNT 8.9 K/uL (4.1-10.2)
[2017-04-12 01:21] LABS: CHLORIDE 93 mEq/L (99-109)
[2017-04-12 01:23] LABS: GLUCOSE 170 mg/dL (70-99)
[2017-04-12 01:24] LABS: ANION GAP 19 MEQ/L (2-14)
[2017-04-12 01:26] LABS: ALKALINE PHOSPHATASE 89 IU/L (3-129)
[2017-04-12 01:28] LABS: UREA NITROGEN (BUN) 60 mg/dL (9-23)
[2017-04-12 01:34] LABS: GFR ESTIMATE (CALCULATED) 16 mL/min/; POTASSIUM 4.4 mEq/L (3.7-5.4); SODIUM 138 mEq/L (136-147); TOTAL BILIRUBIN 1.1 mg/dL (0.0-1.0)
[2017-04-12 03:03] LABS: FIBRINOGEN 91 mg/dL (150-450)
[2017-04-12 04:17] LABS: IRON 103 MCG/DL (35-150); SAMPLE HEMOLYSIS CHECK 0; SAMPLE ICTERIC CHECK 0
[2017-04-12 06:14] LABS: EOSINOPHIL (%) 0.1 % (0-5); HEMATOCRIT 17.8 % (38.0-50.0); IMMATURE GRANULOCYTE (%) 0.5 % (0.0-0.7); IMMATURE GRANULOCYTE COUNT 0.1 K/uL; INSTRUMENT ABS NEUTROPHIL CT 10.2 K/uL; LYMPHOCYTE COUNT 0.3 K/uL (1.0-2.8); MCH 29.8 PG (29.0-34.0); MCHC 33.1 G/DL (30.0-36.0); MCV 89.9 FL (86-99); MEAN PLAT.VOLUME 9.5 uM^3 (9.0-12.4); MONOCYTE (%) 7.9 % (3-12); MONOCYTE COUNT 0.9 K/uL (0-0.8); NEUTROPHIL (%) 89.1 % (45-76); NEUTROPHIL COUNT 10.2 K/uL (1.8-6.4); PLATELET COUNT 102 K/uL (156-360); RBC DIS.WIDTH-CV 16.7 % (11.8-14.6); RBC DIS.WIDTH-SD 51.7 % (39-53); RED BLOOD COUNT 1.98 M/uL (4.00-5.50); WHITE BLOOD COUNT 11.4 K/uL (4.1-10.2)
[2017-04-12 06:32] LABS: ALKALINE PHOSPHATASE 69 IU/L (3-129); ANION GAP 16 MEQ/L (2-14); CHLORIDE 94 MEQ/L (99-109); GFR ESTIMATE (CALCULATED) 15 mL/min/; GLUCOSE 193 mg/dL (70-99); POTASSIUM 4.4 MEQ/L (3.7-5.4); SAMPLE HEMOLYSIS CHECK 0; SAMPLE ICTERIC CHECK 0; SAMPLE LIPEMIA CHECK 0; SODIUM 136 MEQ/L (136-147); TOTAL BILIRUBIN 0.9 MG/DL (0.0-1.0); UREA NITROGEN (BUN) 69 mg/dL (9-23)
[2017-04-12 07:41] LABS: FERRITIN 320 NG/ML (22-322)
[2017-04-12 12:47] LABS: POINT-OF-CARE METER ID UU13113731
[2017-04-12 17:55] LABS: POINT-OF-CARE METER ID UU13113731
[2017-04-12 19:15] LABS: EOSINOPHIL (%) 0 % (0-5); HEMATOCRIT 27.6 % (38.0-50.0); IMMATURE GRANULOCYTE (%) 0.6 % (0.0-0.7); IMMATURE GRANULOCYTE COUNT 0.1 K/uL; INSTRUMENT ABS NEUTROPHIL CT 10.8 K/uL; LYMPHOCYTE COUNT 0.4 K/uL (1.0-2.8); MCH 30.1 PG (29.0-34.0); MCHC 33.3 G/DL (30.0-36.0); MCV 90.2 FL (86-99); MONOCYTE (%) 9.5 % (3-12); MONOCYTE COUNT 1.2 K/uL (0-0.8); NEUTROPHIL (%) 87.1 % (45-76); NEUTROPHIL COUNT 10.8 K/uL (1.8-6.4); NRBC (%) 0.2 /100 WBC (0-0); RBC DIS.WIDTH-CV 16.1 % (11.8-14.6); RBC DIS.WIDTH-SD 51.5 % (39-53); WHITE BLOOD COUNT 12.4 K/uL (4.1-10.2)
[2017-04-12 19:20] LABS: FIBRINOGEN 155 mg/dL (150-450); INTER. NORMALIZED RATIO 1.5; PROTHROMBIN TIME 16.7 SEC (10.2-12.9)
[2017-04-12 19:22] LABS: PTT 34.4 SEC (25-37)
[2017-04-12 19:39] LABS: RED BLOOD COUNT 3.06 M/uL (4.00-5.50)
[2017-04-12 19:43] LABS: ANISOCYTOSIS 1+; MACROCYTES 1+; MEAN PLAT.VOLUME 9.5 uM^3 (9.0-12.4); MICROCYTOSIS 1+; OVALOCYTES 1+; PLAT.SUFFICIENCY DECREASED
[2017-04-12 19:44] LABS: PLATELET COUNT 65 K/uL (156-360)
[2017-04-13] VITALS (24 sets, daily range): BP systolic 104–126; BP diastolic 51–68
[2017-04-13 01:07] LABS: POINT-OF-CARE METER ID UU13113731
[2017-04-13 05:54] LABS: POINT-OF-CARE METER ID UU13113748
[2017-04-13 05:56] LABS: EOSINOPHIL (%) 0.2 % (0-5); HEMATOCRIT 26.9 % (38.0-50.0); IMMATURE GRANULOCYTE (%) 0.9 % (0.0-0.7); IMMATURE GRANULOCYTE COUNT 0.1 K/uL; INSTRUMENT ABS NEUTROPHIL CT 10.4 K/uL; LYMPHOCYTE COUNT 0.4 K/uL (1.0-2.8); MCH 30.3 PG (29.0-34.0); MCHC 34.2 G/DL (30.0-36.0); MCV 88.5 FL (86-99); MEAN PLAT.VOLUME 9.5 uM^3 (9.0-12.4); MONOCYTE (%) 11.1 % (3-12); MONOCYTE COUNT 1.4 K/uL (0-0.8); NEUTROPHIL (%) 84.8 % (45-76); NEUTROPHIL COUNT 10.4 K/uL (1.8-6.4); NRBC (%) 0.2 /100 WBC (0-0); PLATELET COUNT 67 K/uL (156-360); RBC DIS.WIDTH-CV 15.9 % (11.8-14.6); RBC DIS.WIDTH-SD 50.1 % (39-53); RED BLOOD COUNT 3.04 M/uL (4.00-5.50); WHITE BLOOD COUNT 12.3 K/uL (4.1-10.2)
[2017-04-13 06:26] LABS: ALKALINE PHOSPHATASE 88 IU/L (3-129); ANION GAP 12 MEQ/L (2-14); CHLORIDE 96 MEQ/L (99-109); GFR ESTIMATE (CALCULATED) 15 mL/min/; GLUCOSE 229 mg/dL (70-99); MAGNESIUM 1.8 mg/dl (1.3-2.7); POTASSIUM 4.4 MEQ/L (3.7-5.4); SAMPLE HEMOLYSIS CHECK 0; SAMPLE ICTERIC CHECK 0; SAMPLE LIPEMIA CHECK 0; SODIUM 135 MEQ/L (136-147); TOTAL BILIRUBIN 0.9 MG/DL (0.0-1.0); UREA NITROGEN (BUN) 81 mg/dL (9-23)
[2017-04-13 13:20] LABS: POINT-OF-CARE METER ID UU13113748; POINT-OF-CARE USER ID AGYTJR
[2017-04-13 18:05] LABS: POINT-OF-CARE METER ID UU13113748; POINT-OF-CARE USER ID AGYTJR
[2017-04-14] VITALS (11 sets, daily range): BP systolic 110–132; BP diastolic 56–92
[2017-04-14 00:09] LABS: POINT-OF-CARE METER ID UU13113748
[2017-04-14 06:14] LABS: HEMATOCRIT 23.7 % (38.0-50.0); MCH 31.4 PG (29.0-34.0); MCHC 34.6 G/DL (30.0-36.0); MCV 90.8 FL (86-99); MEAN PLAT.VOLUME 10.7 uM^3 (9.0-12.4); NRBC (%) 0.6 /100 WBC (0-0); PLATELET COUNT 56 K/uL (156-360); RBC DIS.WIDTH-CV 16.2 % (11.8-14.6); RBC DIS.WIDTH-SD 51.6 % (39-53); RED BLOOD COUNT 2.61 M/uL (4.00-5.50); WHITE BLOOD COUNT 8.8 K/uL (4.1-10.2)
[2017-04-14 06:27] LABS: POINT-OF-CARE METER ID UU14162636; POINT-OF-CARE USER ID RADDRS44
[2017-04-14 06:53] LABS: ANION GAP 11 MEQ/L (2-14); CHLORIDE 98 MEQ/L (99-109); GFR ESTIMATE (CALCULATED) 19 mL/min/; GLUCOSE 231 mg/dL (70-99); SAMPLE HEMOLYSIS CHECK 0; SAMPLE ICTERIC CHECK 0; SAMPLE LIPEMIA CHECK 0; SODIUM 137 MEQ/L (136-147); UREA NITROGEN (BUN) 63 mg/dL (9-23)
[2017-04-14 06:55] LABS: ABS NEUTROPHIL COUNT 8.5; BAND NEUTROPHILS 3.5 % (0-8.0); EOSINOPHIL ABS CT 0; INSTRUMENT ABS NEUTROPHIL CT 7.6 K/uL; SMUDGE CELLS 5.2
[2017-04-14 12:04] LABS: POINT-OF-CARE METER ID UU14162636
[2017-04-14 17:58] LABS: POINT-OF-CARE METER ID UU14162636
[2017-04-14 23:54] LABS: POINT-OF-CARE METER ID UU13113725
[2017-04-15 06:32] LABS: EOSINOPHIL (%) 1.7 % (0-5); EOSINOPHIL COUNT 0.2 K/uL (0-0.3); HEMATOCRIT 23.4 % (38.0-50.0); IMMATURE GRANULOCYTE (%) 0.6 % (0.0-0.7); IMMATURE GRANULOCYTE COUNT 0.1 K/uL; INSTRUMENT ABS NEUTROPHIL CT 7.7 K/uL; LYMPHOCYTE COUNT 0.2 K/uL (1.0-2.8); MCH 30.7 PG (29.0-34.0); MCHC 33.8 G/DL (30.0-36.0); MCV 91.1 FL (86-99); MEAN PLAT.VOLUME 10.1 uM^3 (9.0-12.4); MONOCYTE (%) 11.2 % (3-12); NEUTROPHIL (%) 84.3 % (45-76); NEUTROPHIL COUNT 7.7 K/uL (1.8-6.4); NRBC (%) 0.2 /100 WBC (0-0); PLATELET COUNT 63 K/uL (156-360); RBC DIS.WIDTH-CV 16.1 % (11.8-14.6); RBC DIS.WIDTH-SD 51.2 % (39-53); RED BLOOD COUNT 2.57 M/uL (4.00-5.50); WHITE BLOOD COUNT 9.1 K/uL (4.1-10.2)
[2017-04-15 06:36] LABS: INTER. NORMALIZED RATIO 1.4; PROTHROMBIN TIME 15.6 SEC (10.2-12.9)
[2017-04-15 06:38] LABS: PTT 34.8 SEC (25-37)
[2017-04-15 07:19] LABS: POINT-OF-CARE METER ID UU13113725
[2017-04-15 07:27] LABS: FIBRINOGEN 219 mg/dL (150-450)
[2017-04-15 07:37] LABS: ANION GAP 13 MEQ/L (2-14); CHLORIDE 99 MEQ/L (99-109); GFR ESTIMATE (CALCULATED) 15 mL/min/; GLUCOSE 189 mg/dL (70-99); POTASSIUM 4.2 MEQ/L (3.7-5.4); SAMPLE HEMOLYSIS CHECK 0; SAMPLE ICTERIC CHECK 0; SAMPLE LIPEMIA CHECK 0; SODIUM 137 MEQ/L (136-147); UREA NITROGEN (BUN) 88 mg/dL (9-23)
[2017-04-15 08:19] VITALS: BP 146/70
[2017-04-15 11:46] LABS: POINT-OF-CARE METER ID UU13113725
[2017-04-15 15:52] VITALS: BP 132/60
[2017-04-15 16:01] VITALS: BP 132/60
[2017-04-15 16:48] LABS: POINT-OF-CARE METER ID UU13113725
[2017-04-16 01:00] VITALS: BP 138/51
[2017-04-16 01:04] VITALS: BP 131/59
[2017-04-16 06:30] LABS: HEMATOCRIT 23.7 % (38.0-50.0); MCH 31.1 PG (29.0-34.0); MCHC 33.3 G/DL (30.0-36.0); MCV 93.3 FL (86-99); PLATELET COUNT 56 K/uL (156-360); RBC DIS.WIDTH-CV 17.3 % (11.8-14.6); RED BLOOD COUNT 2.54 M/uL (4.00-5.50); WHITE BLOOD COUNT 7.5 K/uL (4.1-10.2)
[2017-04-16 06:32] LABS: INTER. NORMALIZED RATIO 1.5; PROTHROMBIN TIME 16.4 SEC (10.2-12.9)
[2017-04-16 07:00] LABS: ABS NEUTROPHIL COUNT 6.8; ANION GAP 15 MEQ/L (2-14); ANISOCYTOSIS 2+; BAND NEUTROPHILS 0.9 % (0-8.0); BURR CELLS 1+; CHLORIDE 98 MEQ/L (99-109); EOSINOPHIL ABS CT 0.1; EOSINOPHILS 0.9 % (0-5.0); GFR ESTIMATE (CALCULATED) 13 mL/min/; GLUCOSE 238 mg/dL (70-99); LYMPHOCYTES 1.8 % (15.0-45.0); MACROCYTES 2+; METAMYELOCYTES 1.8 %; OVALOCYTES 1+; PLAT.SUFFICIENCY DECREASED; POIKILOCYTOSIS 2+; POTASSIUM 4.2 MEQ/L (3.7-5.4); SAMPLE HEMOLYSIS CHECK 0; SAMPLE ICTERIC CHECK 0; SAMPLE LIPEMIA CHECK 0; SEG.NEUTROPHILS 89.3 % (46.0-76.0); SODIUM 136 MEQ/L (136-147); UREA NITROGEN (BUN) 89 mg/dL (9-23)
[2017-04-16 07:30] VITALS: BP 130/60
[2017-04-16 13:43] LABS: POINT-OF-CARE METER ID UU13113725
[2017-04-16 14:50] VITALS: BP 115/55
[2017-04-16 14:57] VITALS: BP 115/55
[2017-04-16 16:13] LABS: POINT-OF-CARE METER ID UU14107333
[2017-04-16 18:00] VITALS: BP 166/90
[2017-04-17 00:58] LABS: POINT-OF-CARE METER ID UU13113725
[2017-04-17 01:14] VITALS: BP 129/60
[2017-04-17 06:12] LABS: POINT-OF-CARE METER ID UU13113725
[2017-04-17 06:14] LABS: EOSINOPHIL COUNT 0.3 K/uL (0-0.3); HEMATOCRIT 22.8 % (38.0-50.0); IMMATURE GRANULOCYTE (%) 0.5 % (0.0-0.7); INSTRUMENT ABS NEUTROPHIL CT 4.7 K/uL; LYMPHOCYTE COUNT 0.2 K/uL (1.0-2.8); MCH 30.7 PG (29.0-34.0); MCHC 32.5 G/DL (30.0-36.0); MCV 94.6 FL (86-99); MEAN PLAT.VOLUME 10.9 uM^3 (9.0-12.4); MONOCYTE (%) 18.2 % (3-12); MONOCYTE COUNT 1.1 K/uL (0-0.8); NEUTROPHIL (%) 74.6 % (45-76); NEUTROPHIL COUNT 4.7 K/uL (1.8-6.4); PLATELET COUNT 56 K/uL (156-360); RBC DIS.WIDTH-CV 18.3 % (11.8-14.6); RBC DIS.WIDTH-SD 55.6 % (39-53); RED BLOOD COUNT 2.41 M/uL (4.00-5.50); WHITE BLOOD COUNT 6.3 K/uL (4.1-10.2)
[2017-04-17 06:39] LABS: ANION GAP 11 MEQ/L (2-14); CHLORIDE 101 MEQ/L (99-109); GFR ESTIMATE (CALCULATED) 18 mL/min/; GLUCOSE 208 mg/dL (70-99); POTASSIUM 3.8 MEQ/L (3.7-5.4); SAMPLE HEMOLYSIS CHECK 0; SAMPLE ICTERIC CHECK 0; SAMPLE LIPEMIA CHECK 0; SODIUM 136 MEQ/L (136-147); UREA NITROGEN (BUN) 56 mg/dL (9-23)
[2017-04-17 07:45] VITALS: BP 121/57
[2017-04-17 11:21] LABS: POINT-OF-CARE METER ID UU13113725
[2017-04-17 16:14] LABS: POINT-OF-CARE METER ID UU13113725
[2017-04-17 16:18] VITALS: BP 125/78
[2017-04-17 17:40] LABS: POINT-OF-CARE METER ID UU13113725
[2017-04-17 22:05] LABS: POINT-OF-CARE METER ID UU13113725
[2017-04-18 00:30] VITALS: BP 114/55
[2017-04-18 05:54] LABS: POINT-OF-CARE METER ID UU13113725
[2017-04-18 06:10] LABS: MCH 30.9 PG (29.0-34.0); MCV 93.5 FL (86-99); MEAN PLAT.VOLUME 10.3 uM^3 (9.0-12.4); PLATELET COUNT 56 K/uL (156-360); RBC DIS.WIDTH-CV 18.2 % (11.8-14.6); RBC DIS.WIDTH-SD 56.2 % (39-53); RED BLOOD COUNT 2.46 M/uL (4.00-5.50); WHITE BLOOD COUNT 5.8 K/uL (4.1-10.2)
[2017-04-18 06:36] LABS: ALKALINE PHOSPHATASE 74 IU/L (3-129); ANION GAP 13 MEQ/L (2-14); CHLORIDE 99 MEQ/L (99-109); GFR ESTIMATE (CALCULATED) 16 mL/min/; GLUCOSE 197 mg/dL (70-99); POTASSIUM 3.5 MEQ/L (3.7-5.4); SAMPLE HEMOLYSIS CHECK 0; SAMPLE ICTERIC CHECK 0; SAMPLE LIPEMIA CHECK 0; SODIUM 137 MEQ/L (136-147); TOTAL BILIRUBIN 0.8 MG/DL (0.0-1.0); UREA NITROGEN (BUN) 61 mg/dL (9-23)
[2017-04-18 07:51] VITALS: BP 118/58
[2017-04-18 15:29] VITALS: BP 102/56
[2017-04-18 15:31] VITALS: BP 112/62
[2017-04-18 23:58] VITALS: BP 109/54
[2017-04-19 03:54] LABS: POINT-OF-CARE METER ID UU13113725
[2017-04-19 06:57] LABS: POINT-OF-CARE METER ID UU13113725
[2017-04-19 07:03] LABS: MCH 29.8 PG (29.0-34.0); MCHC 31.7 G/DL (30.0-36.0); MCV 93.9 FL (86-99); MEAN PLAT.VOLUME 11.3 uM^3 (9.0-12.4); PLATELET COUNT 54 K/uL (156-360); RBC DIS.WIDTH-CV 20.3 % (11.8-14.6); RBC DIS.WIDTH-SD 63.7 % (39-53); WHITE BLOOD COUNT 6.7 K/uL (4.1-10.2)
[2017-04-19 07:08] LABS: EOSINOPHIL (%) 4.7 % (0-5); EOSINOPHIL COUNT 0.3 K/uL (0-0.3); IMMATURE GRANULOCYTE (%) 0.5 % (0.0-0.7); INSTRUMENT ABS NEUTROPHIL CT 5.1 K/uL; LYMPHOCYTE COUNT 0.3 K/uL (1.0-2.8); MONOCYTE (%) 13.1 % (3-12); MONOCYTE COUNT 0.9 K/uL (0-0.8); NEUTROPHIL COUNT 5.1 K/uL (1.8-6.4)
[2017-04-19 07:09] LABS: ANION GAP 12 MEQ/L (2-14); CHLORIDE 99 MEQ/L (99-109); POTASSIUM 3.6 MEQ/L (3.7-5.4); RED BLOOD COUNT 3.09 M/uL (4.00-5.50); SAMPLE HEMOLYSIS CHECK 0; SAMPLE ICTERIC CHECK 0; SAMPLE LIPEMIA CHECK 0; SODIUM 136 MEQ/L (136-147)
[2017-04-19 07:17] LABS: GFR ESTIMATE (CALCULATED) 22 mL/min/; GLUCOSE 239 mg/dL (70-99); UREA NITROGEN (BUN) 39 mg/dL (9-23)
[2017-04-19 08:05] VITALS: BP 108/55
[2017-04-19 13:47] LABS: POINT-OF-CARE METER ID UU13113725
[2017-04-19 15:52] VITALS: BP 112/55
[2017-04-19 16:23] LABS: POINT-OF-CARE METER ID UU13113725
[2017-04-19 20:18] VITALS: BP 121/65
[2017-04-20 01:16] VITALS: BP 121/58
[2017-04-20 06:12] LABS: POINT-OF-CARE METER ID UU13113725
[2017-04-20 06:24] LABS: EOSINOPHIL (%) 4.8 % (0-5); EOSINOPHIL COUNT 0.4 K/uL (0-0.3); HEMATOCRIT 25.7 % (38.0-50.0); IMMATURE GRANULOCYTE (%) 0.4 % (0.0-0.7); INSTRUMENT ABS NEUTROPHIL CT 6.1 K/uL; LYMPHOCYTE COUNT 0.4 K/uL (1.0-2.8); MCH 30.3 PG (29.0-34.0); MCHC 33.5 G/DL (30.0-36.0); MCV 90.5 FL (86-99); MONOCYTE (%) 8.6 % (3-12); MONOCYTE COUNT 0.7 K/uL (0-0.8); NEUTROPHIL (%) 81.3 % (45-76); NEUTROPHIL COUNT 6.1 K/uL (1.8-6.4); RBC DIS.WIDTH-CV 19.2 % (11.8-14.6); RBC DIS.WIDTH-SD 60.6 % (39-53); RED BLOOD COUNT 2.84 M/uL (4.00-5.50); WHITE BLOOD COUNT 7.5 K/uL (4.1-10.2)
[2017-04-20 06:49] LABS: ANION GAP 8 MEQ/L (2-14); CHLORIDE 97 MEQ/L (99-109); GFR ESTIMATE (CALCULATED) 17 mL/min/; GLUCOSE 225 mg/dL (70-99); POTASSIUM 3.4 MEQ/L (3.7-5.4); SAMPLE HEMOLYSIS CHECK 0; SAMPLE ICTERIC CHECK 0; SAMPLE LIPEMIA CHECK 0; SODIUM 133 MEQ/L (136-147); UREA NITROGEN (BUN) 41 mg/dL (9-23)
[2017-04-20 07:50] VITALS: BP 139/75
[2017-04-20 09:21] LABS: IMM.PLATELET FRACTION 3.7 (1-7); MEAN PLAT.VOLUME 11.5 uM^3 (9.0-12.4); PLATELET COUNT 50 K/uL (156-360)
[2017-04-20 13:25] LABS: POINT-OF-CARE METER ID UU13113725
[2017-04-20 16:05] LABS: POINT-OF-CARE METER ID UU13113725
[2017-04-20 21:04] VITALS: BP 115/56
[2017-04-20 21:46] LABS: POINT-OF-CARE METER ID UU13113725
[2017-04-21 00:26] VITALS: BP 121/56
[2017-04-21 08:34] VITALS: BP 128/70
[2017-04-21 16:14] LABS: POINT-OF-CARE METER ID UU13113725
[2017-04-21 16:32] VITALS: BP 130/78
[2017-04-21 23:00] VITALS: BP 115/56
[2017-04-22 06:49] LABS: EOSINOPHIL (%) 2.8 % (0-5); EOSINOPHIL COUNT 0.2 K/uL (0-0.3); HEMATOCRIT 27.8 % (38.0-50.0); IMMATURE GRANULOCYTE (%) 0.5 % (0.0-0.7); INSTRUMENT ABS NEUTROPHIL CT 6.7 K/uL; LYMPHOCYTE COUNT 0.3 K/uL (1.0-2.8); MCH 30.4 PG (29.0-34.0); MCHC 32.7 G/DL (30.0-36.0); MEAN PLAT.VOLUME 10.7 uM^3 (9.0-12.4); MONOCYTE (%) 6.9 % (3-12); MONOCYTE COUNT 0.5 K/uL (0-0.8); NEUTROPHIL (%) 85.3 % (45-76); NEUTROPHIL COUNT 6.7 K/uL (1.8-6.4); PLATELET COUNT 71 K/uL (156-360); RBC DIS.WIDTH-CV 18.8 % (11.8-14.6); RBC DIS.WIDTH-SD 61.8 % (39-53); RED BLOOD COUNT 2.99 M/uL (4.00-5.50); WHITE BLOOD COUNT 7.8 K/uL (4.1-10.2)
[2017-04-22 07:13] LABS: ANION GAP 10 MEQ/L (2-14); CHLORIDE 100 MEQ/L (99-109); GFR ESTIMATE (CALCULATED) 20 mL/min/; GLUCOSE 121 mg/dL (70-99); POTASSIUM 3.6 MEQ/L (3.7-5.4); SAMPLE HEMOLYSIS CHECK 0; SAMPLE ICTERIC CHECK 0; SAMPLE LIPEMIA CHECK 0; SODIUM 136 MEQ/L (136-147); UREA NITROGEN (BUN) 32 mg/dL (9-23)
[2017-04-22 08:12] VITALS: BP 138/70
[2017-04-22 11:10] LABS: POINT-OF-CARE METER ID UU13113725
[2017-04-22 12:13] VITALS: BP 138/65
[2017-04-22] MEDS ORDERED: XIFAXAN550 MG PO (12:45)
[2017-04-22] MEDS ORDERED: PROTONIX40 MG PO (12:49)
[2017-04-22 15:33] VITALS: BP 135/65
[2017-04-24] MEDS ORDERED: PRILOSEC20 MG PO (13:38)
== END 2017-04-22 17:01 | DRG 432 ==
LOC: EME 11:40 → 4WEST 17:28 → 5EAST 17:28 → EDOF 17:28 → ENRESERV 17:29 → 4WEST 19:45 → ENRESERV 04-14 15:17 → 4WEST 04-14 15:17 → ENRESERV 04-14 17:01 → 5EAST 04-14 20:06
PROVIDERS: Emergency Medicine; Hospitalist; Internal Medicine; Internal Medicine Critical Care Medicine; Internal Medicine Gastroenterology; Internal Medicine Nephrology; Obstetrics & Gynecology
PROC: 5A1D60Z (ICD-10-PCS; principal; 2017-04-11)
PROC: 30233M1 Transfusion of Nonautologous Plasma Cryoprecipitate into Peripheral Vein, Percutaneous Approach (ICD-10-PCS; 2017-04-12)
PROC: 0W9G3ZZ Drainage of Peritoneal Cavity, Percutaneous Approach (ICD-10-PCS; 2017-04-15)
PROC: 30233R1 Transfusion of Nonautologous Platelets into Peripheral Vein, Percutaneous Approach (ICD-10-PCS; 2017-04-16)
PROC: 0DJ08ZZ Inspection of Upper Intestinal Tract, Via Natural or Artificial Opening Endoscopic (ICD-10-PCS; 2017-04-16)
PROC: 30233N1 Transfusion of Nonautologous Red Blood Cells into Peripheral Vein, Percutaneous Approach (ICD-10-PCS; 2017-04-18)
DX: K74.60 Unspecified cirrhosis of liver (principal); N17.9 Acute kidney failure, unspecified; I85.11 Secondary esophageal varices with bleeding; I13.2 Hypertensive heart and chronic kidney disease with heart failure and with stage 5 chronic kidney disease, or end stage renal disease; I95.9 Hypotension, unspecified; E87.2 Acidosis; D68.4 Acquired coagulation factor deficiency; I95.3 Hypotension of hemodialysis; K26.9 Duodenal ulcer, unspecified as acute or chronic, without hemorrhage or perforation; L89.152 Pressure ulcer of sacral region, stage 2; D62 Acute posthemorrhagic anemia; N18.6 End stage renal disease; D50.0 Iron deficiency anemia secondary to blood loss (chronic); D63.1 Anemia in chronic kidney disease; D69.59 Other secondary thrombocytopenia; E11.22 Type 2 diabetes mellitus with diabetic chronic kidney disease; Z87.442 Personal history of urinary calculi; E11.65 Type 2 diabetes mellitus with hyperglycemia; E78.5 Hyperlipidemia, unspecified; E87.1 Hypo-osmolality and hyponatremia; E87.5 Hyperkalemia; I25.10 Atherosclerotic heart disease of native coronary artery without angina pectoris; I48.0 Paroxysmal atrial fibrillation; I86.4 Gastric varices; K29.80 Duodenitis without bleeding; K31.89 Other diseases of stomach and duodenum; K72.90 Hepatic failure, unspecified without coma; K75.81 Nonalcoholic steatohepatitis (NASH); K76.6 Portal hypertension; K80.10 Calculus of gallbladder with chronic cholecystitis without obstruction; N39.0 Urinary tract infection, site not specified; R18.8 Other ascites; T36.8X5A Adverse effect of other systemic antibiotics, initial encounter; Z66 Do not resuscitate; Z79.4 Long term (current) use of insulin; Z80.7 Family history of other malignant neoplasms of lymphoid, hematopoietic and related tissues; Z85.038 Personal history of other malignant neoplasm of large intestine; Z87.891 Personal history of nicotine dependence; Z90.49 Acquired absence of other specified parts of digestive tract; Z95.1 Presence of aortocoronary bypass graft; Z99.2 Dependence on renal dialysis; L89.90 Pressure ulcer of unspecified site, unspecified stage; R63.0 Anorexia; K92.1 Melena; Z92.21 Personal history of antineoplastic chemotherapy; Z82.3 Family history of stroke; I50.9 Heart failure, unspecified
CPT/HCPCS: 49083; 71010; 74176; 76705; 76770; 80048; 80053; 80069; 80076; 81003; 82140; 82607; 82728; 82746; 82948; 83010 90; 83540; 83605; 83735; 83986 90; 84100; 84157; 84466; 84484; 85025; 85025 91; 85027; 85384; 85610; 85730; 86900; 86901; 86920; 86965; 87086; 87641; 92610 GN; 93005; 97530 GP; 99281; 99285; C1769; C9113; J0610; J0696; J1644; J1815; J2354; J7050; P9012; P9016; P9035; P9037; P9040; P9047

== ENCOUNTER → 2017-04-24 | Outpatient (CLI) | payer OTHER ==
[~2017-04-24] MED LIST changes: +PRILOSEC20 MG PO; +PROTONIX40 MG PO; +XIFAXAN550 MG PO
== END ==
LOC: RAD 12:26
PROC: 0W9G3ZZ Drainage of Peritoneal Cavity, Percutaneous Approach (ICD-10-PCS; principal; 2017-04-24)
DX: R18.8 Other ascites (principal); K74.60 Unspecified cirrhosis of liver
CPT/HCPCS: 49083; P9047

== ENCOUNTER → 2017-05-01 | Outpatient (CLI) | payer OTHER ==
[~2017-05-01] MED LIST changes: +HUMALOG100 UNIT/1 SC; +ROXICODONE5 MG PO; +TRADJENTA5 MG PO; +VITAMIN B-2100 MG PO
== END ==
LOC: RAD 08:22
PROC: 0W9G3ZZ Drainage of Peritoneal Cavity, Percutaneous Approach (ICD-10-PCS; principal; 2017-05-01)
DX: R18.8 Other ascites (principal)
CPT/HCPCS: 49083; P9047

== ENCOUNTER → 2017-05-15 | Outpatient (CLI) | payer OTHER | END | disposition home or self-care (01) | LOC: RAD 12:57 | PROC: 0W9G3ZZ Drainage of Peritoneal Cavity, Percutaneous Approach (ICD-10-PCS; principal; 2017-05-15) | DX: R18.8 Other ascites (principal) | CPT/HCPCS: 49083; P9047 ==

== ENCOUNTER → 2017-06-03 | Outpatient (CLI) | payer OTHER | LOC: RAD 05-01 08:30 | PROC: 0W9G3ZZ Drainage of Peritoneal Cavity, Percutaneous Approach (ICD-10-PCS; principal; 2017-06-03) | DX: R18.8 Other ascites (principal) | CPT/HCPCS: 49083; P9047 ==

== ENCOUNTER → 2017-07-01 | Outpatient (CLI) | payer OTHER | LOC: RAD 06-27 08:30 | PROC: 0WJG3ZZ Inspection of Peritoneal Cavity, Percutaneous Approach (ICD-10-PCS; principal; 2017-07-01) | DX: R18.8 Other ascites (principal); R14.0 Abdominal distension (gaseous) | CPT/HCPCS: 76705 ==

== ENCOUNTER 2017-07-20 18:04 | Inpatient (IN) | payer OTHER ==
[~2017-07-20] VITALS: Ht 175.3 cm; Wt 71.8 kg
[2017-07-20 18:30] LABS: POINT-OF-CARE METER ID UU13113747
[2017-07-20 18:59] LABS: HEMATOCRIT 34.6 % (38.0-50.0); MCHC 34.1 G/DL (30.0-36.0); MCV 90.8 FL (86-99); MEAN PLAT.VOLUME 10.8 uM^3 (9.0-12.4); PLATELET COUNT 113 K/uL (156-360); RBC DIS.WIDTH-CV 16.9 % (11.8-14.6); RBC DIS.WIDTH-SD 56.2 % (39-53); RED BLOOD COUNT 3.81 M/uL (4.00-5.50)
[2017-07-20 19:13] LABS: CHLORIDE 98 mEq/L (99-109); POTASSIUM 4.2 mEq/L (3.7-5.4); SODIUM 137 mEq/L (136-147)
[2017-07-20 19:15] LABS: GLUCOSE 361 mg/dL (70-99)
[2017-07-20 19:16] LABS: ANION GAP 15 MEQ/L (2-14)
[2017-07-20 19:17] LABS: TOTAL BILIRUBIN 1.1 mg/dL (0.0-1.0)
[2017-07-20 19:19] LABS: ALKALINE PHOSPHATASE 176 IU/L (3-129); GFR ESTIMATE (CALCULATED) 29 mL/min/
[2017-07-20 19:20] LABS: UREA NITROGEN (BUN) 59 mg/dL (9-23)
[2017-07-20 19:22] LABS: TROP-I INTERPRETATION NEGATIVE; TROPONIN-I < 0.01 ng/mL (0.0-0.30)
[2017-07-20 20:28] LABS: LIPASE 29 U/L (1.0-51.0)
[2017-07-20 22:04] LABS: ADD MIUA? YES; BILIRUBIN NEGATIVE; BLOOD NEGATIVE; COLOR YELLOW ((YELLOW)); GLUCOSE (STRIP) 50; KETONES NEGATIVE; LEUKOCYTES SMALL; NITRITE NEGATIVE; PROTEIN (STRIP) NEGATIVE; SPECIFIC GRAVITY 1.009 (1.000-1.030); UROBILINOGEN 0.2 MG/DL (0.2-1.0)
[2017-07-20 22:45] LABS: BACTERIA NONE SEEN /HPF; CASTS NONE SEEN /LPF; CRYSTALS NONE SEEN; EPITHELIAL CELLS RARE /HPF; MUCUS NONE SEEN /LPF; RED BLOOD CELLS RARE /HPF (0-5); UCUL ADDED? NO; WHITE BLOOD CELLS 0-5 /HPF (0-5)
[2017-07-21 04:22] VITALS: BP 129/61
[2017-07-21 07:46] VITALS: BP 137/68
[2017-07-21 07:47] LABS: ALKALINE PHOSPHATASE 154 IU/L (3-129); DIRECT BILIRUBIN 0.4 mg/dL (0.0-0.3)
[2017-07-21 07:50] LABS: TOTAL BILIRUBIN 1.3 MG/DL (0.0-1.0)
[2017-07-21 12:20] LABS: POINT-OF-CARE METER ID UU13113717
[2017-07-21 13:13] VITALS: BP 136/65
[2017-07-21 16:00] VITALS: BP 119/68
[2017-07-21 16:17] LABS: POINT-OF-CARE METER ID UU13113717
[2017-07-21 17:15] LABS: POINT-OF-CARE METER ID UU14188625
[2017-07-21 19:48] VITALS: BP 125/60
[2017-07-21 21:37] LABS: POINT-OF-CARE METER ID UU14174225
[2017-07-21 23:45] VITALS: BP 131/62
[2017-07-22 03:54] VITALS: BP 128/62
[2017-07-22 06:22] LABS: BASOPHIL COUNT 0.1 K/uL (0-0.1); EOSINOPHIL COUNT 0.3 K/uL (0-0.3); HEMATOCRIT 34.3 % (38.0-50.0); IMMATURE GRANULOCYTE (%) 0.4 % (0.0-0.7); INSTRUMENT ABS NEUTROPHIL CT 4.2 K/uL; LYMPHOCYTE COUNT 0.5 K/uL (1.0-2.8); MCH 30.7 PG (29.0-34.0); MCHC 32.4 G/DL (30.0-36.0); MEAN PLAT.VOLUME 10.7 uM^3 (9.0-12.4); MONOCYTE (%) 10.7 % (3-12); MONOCYTE COUNT 0.6 K/uL (0-0.8); NEUTROPHIL (%) 73.7 % (45-76); NEUTROPHIL COUNT 4.2 K/uL (1.8-6.4); PLATELET COUNT 113 K/uL (156-360); RBC DIS.WIDTH-CV 17.2 % (11.8-14.6); RBC DIS.WIDTH-SD 59.9 % (39-53); RED BLOOD COUNT 3.61 M/uL (4.00-5.50); WHITE BLOOD COUNT 5.6 K/uL (4.1-10.2)
[2017-07-22 06:38] LABS: ANION GAP 10 MEQ/L (2-14); GFR ESTIMATE (CALCULATED) 32 mL/min/; POTASSIUM 4.1 MEQ/L (3.7-5.4); SAMPLE HEMOLYSIS CHECK 0; SAMPLE ICTERIC CHECK 0; SAMPLE LIPEMIA CHECK 0; SODIUM 143 MEQ/L (136-147); UREA NITROGEN (BUN) 52 mg/dL (9-23)
[2017-07-22 06:39] LABS: CHLORIDE 104 MEQ/L (99-109); GLUCOSE 154 mg/dL (70-99)
[2017-07-22 07:44] VITALS: BP 138/72
[2017-07-22 11:45] VITALS: BP 139/60
[2017-07-22 12:05] LABS: POINT-OF-CARE METER ID UU14188625
[2017-07-22] MEDS ORDERED: BUMEX2 MG PO (13:12)
[2017-07-22] MEDS ORDERED: ALDACTONE100 MG PO (13:12)
[2017-07-22] MEDS ORDERED: MIDODRINE HCL2.5 MG PO (13:13)
[2017-07-22] MEDS ORDERED: CONSTULOSE10 GM/15 M PO (13:14)
[2017-07-22] MEDS ORDERED: BASAGLAR K100 UNIT/1 SC (13:14)
[2017-07-22 13:16] LABS: ADD MIUA? YES; BILIRUBIN NEGATIVE; BLOOD SMALL; COLOR YELLOW ((YELLOW)); GLUCOSE (STRIP) 150; KETONES NEGATIVE; LEUKOCYTES MODERATE; NITRITE NEGATIVE; PROTEIN (STRIP) NEGATIVE; SPECIFIC GRAVITY 1.015 (1.000-1.030); UROBILINOGEN 0.2 MG/DL (0.2-1.0)
[2017-07-22 13:33] LABS: BACTERIA NONE SEEN /HPF; EPITHELIAL CELLS NONE SEEN /HPF; MUCUS TRACE /LPF; RED BLOOD CELLS 30-40 /HPF (0-5); UCUL ADDED? YES; WHITE BLOOD CELLS TNTC /HPF (0-5); WHITE BLOOD CELLS CLUMP MANY /HPF (0-5)
[2017-07-22 16:05] VITALS: BP 128/60
[2017-07-22 17:12] LABS: POINT-OF-CARE METER ID UU14174225
[2017-07-22 19:34] VITALS: BP 112/57
[2017-07-22 20:44] LABS: POINT-OF-CARE METER ID UU14174225
[2017-07-22 23:28] VITALS: BP 123/58
[2017-07-23 04:03] VITALS: BP 113/55
[2017-07-23 05:57] LABS: BASOPHIL COUNT 0.1 K/uL (0-0.1); EOSINOPHIL (%) 5.6 % (0-5); EOSINOPHIL COUNT 0.3 K/uL (0-0.3); HEMATOCRIT 29.9 % (38.0-50.0); IMMATURE GRANULOCYTE (%) 0.4 % (0.0-0.7); INSTRUMENT ABS NEUTROPHIL CT 3.4 K/uL; LYMPHOCYTE COUNT 0.5 K/uL (1.0-2.8); MCH 30.5 PG (29.0-34.0); MCHC 32.1 G/DL (30.0-36.0); MCV 94.9 FL (86-99); MEAN PLAT.VOLUME 10.5 uM^3 (9.0-12.4); MONOCYTE (%) 12.4 % (3-12); MONOCYTE COUNT 0.6 K/uL (0-0.8); NEUTROPHIL (%) 70.7 % (45-76); NEUTROPHIL COUNT 3.4 K/uL (1.8-6.4); PLATELET COUNT 95 K/uL (156-360); RBC DIS.WIDTH-CV 16.8 % (11.8-14.6); RED BLOOD COUNT 3.15 M/uL (4.00-5.50); WHITE BLOOD COUNT 4.9 K/uL (4.1-10.2)
[2017-07-23 06:26] LABS: ALKALINE PHOSPHATASE 151 IU/L (3-129); ANION GAP 6 MEQ/L (2-14); CHLORIDE 106 MEQ/L (99-109); GFR ESTIMATE (CALCULATED) 35 mL/min/; GLUCOSE 213 mg/dL (70-99); POTASSIUM 4.1 MEQ/L (3.7-5.4); SAMPLE HEMOLYSIS CHECK 0; SAMPLE ICTERIC CHECK 0; SAMPLE LIPEMIA CHECK 0; SODIUM 138 MEQ/L (136-147); UREA NITROGEN (BUN) 43 mg/dL (9-23)
[2017-07-23 06:33] LABS: TOTAL BILIRUBIN 0.8 MG/DL (0.0-1.0)
[2017-07-23 07:54] VITALS: BP 131/66
[2017-07-23 11:57] LABS: POINT-OF-CARE METER ID UU13113717
[2017-07-23 15:39] VITALS: BP 113/65
[2017-07-23 17:09] LABS: POINT-OF-CARE METER ID UU13113717
[2017-07-23 21:00] VITALS: BP 125/78
[2017-07-23 22:22] LABS: POINT-OF-CARE METER ID UU13113717; POINT-OF-CARE USER ID AHSUCEG
[2017-07-23 23:41] VITALS: BP 131/69
[2017-07-24 06:17] LABS: BASOPHIL COUNT 0.1 K/uL (0-0.1); EOSINOPHIL (%) 4.5 % (0-5); EOSINOPHIL COUNT 0.2 K/uL (0-0.3); HEMATOCRIT 28.4 % (38.0-50.0); IMMATURE GRANULOCYTE (%) 0.6 % (0.0-0.7); INSTRUMENT ABS NEUTROPHIL CT 3.3 K/uL; LYMPHOCYTE COUNT 0.5 K/uL (1.0-2.8); MCH 30.6 PG (29.0-34.0); MCHC 32.7 G/DL (30.0-36.0); MCV 93.4 FL (86-99); MEAN PLAT.VOLUME 10.1 uM^3 (9.0-12.4); MONOCYTE (%) 12.3 % (3-12); MONOCYTE COUNT 0.6 K/uL (0-0.8); NEUTROPHIL (%) 71.8 % (45-76); NEUTROPHIL COUNT 3.3 K/uL (1.8-6.4); PLATELET COUNT 82 K/uL (156-360); RBC DIS.WIDTH-CV 16.6 % (11.8-14.6); RBC DIS.WIDTH-SD 56.9 % (39-53); RED BLOOD COUNT 3.04 M/uL (4.00-5.50); WHITE BLOOD COUNT 4.7 K/uL (4.1-10.2)
[2017-07-24 07:16] VITALS: BP 109/56
[2017-07-24 07:59] LABS: ANION GAP 5 MEQ/L (2-14); CHLORIDE 108 MEQ/L (99-109); GFR ESTIMATE (CALCULATED) 53 mL/min/; GLUCOSE 164 mg/dL (70-99); POTASSIUM 4.1 MEQ/L (3.7-5.4); SAMPLE HEMOLYSIS CHECK 0; SAMPLE ICTERIC CHECK 0; SAMPLE LIPEMIA CHECK 0; SODIUM 136 MEQ/L (136-147); UREA NITROGEN (BUN) 34 mg/dL (9-23)
[2017-07-24] MEDS ORDERED: BUMEX1 MG PO (10:52)
[2017-07-24] MEDS ORDERED: CONSTULOSE10 GM/15 M PO (10:52)
[2017-07-24] MEDS ORDERED: ALDACTONE50 MG PO (10:52)
[2017-07-24 11:50] LABS: POINT-OF-CARE METER ID UU14174225
== END 2017-07-24 15:08 | disposition home health service (06) | DRG 442 ==
LOC: EME 18:04 → EDOF 07-21 01:09 → 5SOUTH 07-21 01:09 → ENRESERV 07-21 01:15 → 5SOUTH 07-21 03:33
PROVIDERS: Hospitalist; Internal Medicine Gastroenterology; Internal Medicine Nephrology; Student in an Organized Health Care Education/Training Program
DX: K72.90 Hepatic failure, unspecified without coma (principal); N17.9 Acute kidney failure, unspecified; T50.2X5A Adverse effect of carbonic-anhydrase inhibitors, benzothiadiazides and other diuretics, initial encounter; K74.60 Unspecified cirrhosis of liver; K76.6 Portal hypertension; R18.8 Other ascites; K80.10 Calculus of gallbladder with chronic cholecystitis without obstruction; I11.0 Hypertensive heart disease with heart failure; I50.9 Heart failure, unspecified; I48.0 Paroxysmal atrial fibrillation; D69.6 Thrombocytopenia, unspecified; D64.9 Anemia, unspecified; D68.9 Coagulation defect, unspecified; E11.65 Type 2 diabetes mellitus with hyperglycemia; R13.10 Dysphagia, unspecified; E78.5 Hyperlipidemia, unspecified; R32 Unspecified urinary incontinence; R19.7 Diarrhea, unspecified; R47.81 Slurred speech; R53.1 Weakness; Z80.7 Family history of other malignant neoplasms of lymphoid, hematopoietic and related tissues; Z85.038 Personal history of other malignant neoplasm of large intestine; Z87.891 Personal history of nicotine dependence; Z91.19 Patient's noncompliance with other medical treatment and regimen; Z93.3 Colostomy status; Z95.1 Presence of aortocoronary bypass graft
CPT/HCPCS: 70450; 71010; 80048; 80053; 80069; 80076; 81003; 82140; 82948; 83690; 84484; 85025; 85027; 87086; 93005; 99281; 99285; J1815; J7030

== ENCOUNTER 2017-07-30 14:38 | Inpatient (IN) | payer OTHER ==
[~2017-07-30] VITALS: Ht 175.3 cm; Wt 81.2 kg
[~2017-07-30 14:38] MED LIST changes: +ALDACTONE100 MG PO; +ALDACTONE50 MG PO; +BASAGLAR K100 UNIT/1 SC; +BUMEX1 MG PO; +BUMEX2 MG PO; +CONSTULOSE10 GM/15 M PO; +MIDODRINE HCL2.5 MG PO
[2017-07-30 15:35] LABS: ADD MIUA? YES; BILIRUBIN NEGATIVE; BLOOD NEGATIVE; COLOR YELLOW ((YELLOW)); GLUCOSE (STRIP) NEGATIVE; KETONES NEGATIVE; LEUKOCYTES MODERATE; NITRITE NEGATIVE; PROTEIN (STRIP) NEGATIVE; SPECIFIC GRAVITY 1.009 (1.000-1.030); UROBILINOGEN 0.2 MG/DL (0.2-1.0)
[2017-07-30 15:39] LABS: BACTERIA NONE SEEN /HPF; EPITHELIAL CELLS NONE SEEN /HPF; MUCUS TRACE /LPF; RED BLOOD CELLS 0-5 /HPF (0-5)
[2017-07-30 15:41] LABS: EOSINOPHIL (%) 2.5 % (0-5); EOSINOPHIL COUNT 0.1 K/uL (0-0.3); HEMATOCRIT 29.6 % (38.0-50.0); IMMATURE GRANULOCYTE (%) 0.3 % (0.0-0.7); INSTRUMENT ABS NEUTROPHIL CT 2.6 K/uL; LYMPHOCYTE COUNT 0.5 K/uL (1.0-2.8); MCHC 33.4 G/DL (30.0-36.0); MCV 92.8 FL (86-99); MEAN PLAT.VOLUME 9.4 uM^3 (9.0-12.4); MONOCYTE (%) 10.7 % (3-12); MONOCYTE COUNT 0.4 K/uL (0-0.8); NEUTROPHIL (%) 72.8 % (45-76); NEUTROPHIL COUNT 2.6 K/uL (1.8-6.4); PLATELET COUNT 94 K/uL (156-360); RBC DIS.WIDTH-CV 17.2 % (11.8-14.6); RBC DIS.WIDTH-SD 57.6 % (39-53); RED BLOOD COUNT 3.19 M/uL (4.00-5.50); WHITE BLOOD COUNT 3.6 K/uL (4.1-10.2)
[2017-07-30 15:57] LABS: CHLORIDE 108 mEq/L (99-109); POTASSIUM 4.6 mEq/L (3.7-5.4); SODIUM 136 mEq/L (136-147)
[2017-07-30 15:59] LABS: GLUCOSE 169 mg/dL (70-99)
[2017-07-30 16:01] LABS: ANION GAP 7 MEQ/L (2-14); TOTAL BILIRUBIN 0.7 mg/dL (0.0-1.0)
[2017-07-30 16:03] LABS: ALKALINE PHOSPHATASE 162 IU/L (3-129); GFR ESTIMATE (CALCULATED) 46 mL/min/
[2017-07-30 16:04] LABS: UREA NITROGEN (BUN) 27 mg/dL (9-23)
[2017-07-30] MEDS ORDERED: ALDACTONE50 MG PO (18:13)
[2017-07-30] MEDS ORDERED: LACTULOSE10 GM/151 PO (18:15)
[2017-07-30] MEDS ORDERED: BUMEX1 MG PO (18:17)
[2017-07-30] MEDS ORDERED: ALEVE220 M2 PO (18:18)
[2017-07-30] MEDS ORDERED: IRON325 M1 PO (18:18)
[2017-07-30] MEDS ORDERED: SANTYL30 GM TP (18:20)
[2017-07-30 21:39] VITALS: BP 138/67
[2017-07-30 22:55] LABS: POINT-OF-CARE METER ID UU13113725
[2017-07-30 23:39] VITALS: BP 146/65
[2017-07-31 06:21] LABS: ANION GAP 9 MEQ/L (2-14); CHLORIDE 111 MEQ/L (99-109); POTASSIUM 4.3 MEQ/L (3.7-5.4); SAMPLE HEMOLYSIS CHECK 0; SAMPLE ICTERIC CHECK 0; SAMPLE LIPEMIA CHECK 0; SODIUM 141 MEQ/L (136-147)
[2017-07-31 06:27] LABS: GFR ESTIMATE (CALCULATED) 53 mL/min/; UREA NITROGEN (BUN) 26 mg/dL (9-23)
[2017-07-31 06:30] LABS: GLUCOSE 99 mg/dL (70-99)
[2017-07-31 07:27] LABS: HEMATOCRIT 32.1 % (38.0-50.0); MCH 31.2 PG (29.0-34.0); MCV 94.4 FL (86-99); MEAN PLAT.VOLUME 10.5 uM^3 (9.0-12.4); PLATELET COUNT 94 K/uL (156-360); RBC DIS.WIDTH-CV 17.1 % (11.8-14.6); RBC DIS.WIDTH-SD 59.5 % (39-53); WHITE BLOOD COUNT 4.1 K/uL (4.1-10.2)
[2017-07-31 07:47] VITALS: BP 124/66
[2017-07-31 09:49] LABS: INTER. NORMALIZED RATIO 1.1; PROTHROMBIN TIME 13.1 SEC (10.2-12.9)
[2017-07-31 11:30] VITALS: BP 131/65
[2017-07-31 12:28] LABS: POINT-OF-CARE METER ID UU13113725
[2017-07-31 16:18] LABS: POINT-OF-CARE METER ID UU13113725
[2017-07-31 16:19] VITALS: BP 118/58
[2017-07-31 21:54] LABS: POINT-OF-CARE METER ID UU13113725
[2017-07-31 23:30] VITALS: BP 131/65
[2017-08-01 06:19] LABS: POINT-OF-CARE METER ID UU13113725
[2017-08-01 06:21] LABS: BASOPHIL COUNT 0.1 K/uL (0-0.1); EOSINOPHIL (%) 4.9 % (0-5); EOSINOPHIL COUNT 0.2 K/uL (0-0.3); HEMATOCRIT 29.7 % (38.0-50.0); IMMATURE GRANULOCYTE (%) 0.3 % (0.0-0.7); INSTRUMENT ABS NEUTROPHIL CT 2.6 K/uL; LYMPHOCYTE COUNT 0.4 K/uL (1.0-2.8); MCH 30.5 PG (29.0-34.0); MCV 92.5 FL (86-99); MONOCYTE (%) 10.1 % (3-12); MONOCYTE COUNT 0.4 K/uL (0-0.8); NEUTROPHIL (%) 71.7 % (45-76); NEUTROPHIL COUNT 2.6 K/uL (1.8-6.4); PLATELET COUNT 82 K/uL (156-360); RBC DIS.WIDTH-CV 16.5 % (11.8-14.6); RBC DIS.WIDTH-SD 56.1 % (39-53); RED BLOOD COUNT 3.21 M/uL (4.00-5.50); WHITE BLOOD COUNT 3.7 K/uL (4.1-10.2)
[2017-08-01 06:42] LABS: ALKALINE PHOSPHATASE 180 IU/L (3-129); ANION GAP 8 MEQ/L (2-14); CHLORIDE 109 MEQ/L (99-109); GFR ESTIMATE (CALCULATED) 53 mL/min/; GLUCOSE 132 mg/dL (70-99); SAMPLE HEMOLYSIS CHECK 0; SAMPLE ICTERIC CHECK 0; SAMPLE LIPEMIA CHECK 0; SODIUM 139 MEQ/L (136-147); TOTAL BILIRUBIN 0.8 MG/DL (0.0-1.0); UREA NITROGEN (BUN) 21 mg/dL (9-23)
[2017-08-01 08:00] VITALS: BP 129/65
[2017-08-01 11:20] LABS: POINT-OF-CARE METER ID UU13113774
[2017-08-01 16:23] LABS: POINT-OF-CARE METER ID UU13113774
[2017-08-01 16:25] VITALS: BP 122/58
[2017-08-01 20:53] VITALS: BP 133/61
[2017-08-01 21:44] LABS: POINT-OF-CARE METER ID UU13113725
[2017-08-02 00:05] VITALS: BP 117/56
[2017-08-02 05:30] LABS: BASOPHIL COUNT 0.1 K/uL (0-0.1); EOSINOPHIL COUNT 0.3 K/uL (0-0.3); HEMATOCRIT 33.4 % (38.0-50.0); IMMATURE GRANULOCYTE (%) 0.2 % (0.0-0.7); INSTRUMENT ABS NEUTROPHIL CT 4.1 K/uL; LYMPHOCYTE COUNT 0.6 K/uL (1.0-2.8); MCH 31.3 PG (29.0-34.0); MCHC 33.2 G/DL (30.0-36.0); MCV 94.1 FL (86-99); MONOCYTE (%) 8.8 % (3-12); MONOCYTE COUNT 0.5 K/uL (0-0.8); NEUTROPHIL (%) 74.6 % (45-76); NEUTROPHIL COUNT 4.1 K/uL (1.8-6.4); PLATELET COUNT 106 K/uL (156-360); RBC DIS.WIDTH-CV 16.4 % (11.8-14.6); RBC DIS.WIDTH-SD 57.6 % (39-53); RED BLOOD COUNT 3.55 M/uL (4.00-5.50); WHITE BLOOD COUNT 5.4 K/uL (4.1-10.2)
[2017-08-02 05:42] LABS: POINT-OF-CARE METER ID UU13113725
[2017-08-02 05:57] LABS: ANION GAP 9 MEQ/L (2-14); CHLORIDE 107 MEQ/L (99-109); GFR ESTIMATE (CALCULATED) 58 mL/min/; GLUCOSE 126 mg/dL (70-99); POTASSIUM 4.3 MEQ/L (3.7-5.4); SAMPLE HEMOLYSIS CHECK 0; SAMPLE ICTERIC CHECK 0; SAMPLE LIPEMIA CHECK 0; SODIUM 137 MEQ/L (136-147); UREA NITROGEN (BUN) 18 mg/dL (9-23)
[2017-08-02 07:52] VITALS: BP 114/64
[2017-08-02 12:10] LABS: POINT-OF-CARE METER ID UU13113774
[2017-08-02] MEDS ORDERED: LACTULOSE10 GM/151 PO (14:15)
[2017-08-02 15:17] VITALS: BP 104/55
[2017-08-02 16:55] LABS: POINT-OF-CARE METER ID UU13113725
== END 2017-08-02 18:44 | disposition home or self-care (01) | DRG 442 ==
LOC: EME → EDSEX 14:38 → EDBD 14:38 → EME 14:38 → EDOF 18:46 → ENRESERV 18:48 → CANRESERV 19:19 → ENRESERV 19:19 → EDOF 19:41 → 5EAST 19:41 → EDOF 19:41 → ENRESERV 19:42 → 5EAST 20:40
PROVIDERS: Emergency Medicine; Hospitalist; Internal Medicine Nephrology; Student in an Organized Health Care Education/Training Program
PROC: 02PY33Z Removal of Infusion Device from Great Vessel, Percutaneous Approach (ICD-10-PCS; principal; 2017-08-02)
DX: K72.90 Hepatic failure, unspecified without coma (principal); N39.0 Urinary tract infection, site not specified; E11.65 Type 2 diabetes mellitus with hyperglycemia; K74.60 Unspecified cirrhosis of liver; R18.8 Other ascites; E86.0 Dehydration; E11.22 Type 2 diabetes mellitus with diabetic chronic kidney disease; I13.0 Hypertensive heart and chronic kidney disease with heart failure and stage 1 through stage 4 chronic kidney disease, or unspecified chronic kidney disease; N18.3 Chronic kidney disease, stage 3 (moderate); I50.9 Heart failure, unspecified; E78.5 Hyperlipidemia, unspecified; Z66 Do not resuscitate; Z95.1 Presence of aortocoronary bypass graft; Z85.038 Personal history of other malignant neoplasm of large intestine; Z87.891 Personal history of nicotine dependence
CPT/HCPCS: 70450; 71010; 80048; 80053; 81003; 82140; 82948; 85025; 85027; 85610; 87040; 87077; 87081; 99281; 99285; C1755; J0696; J1815; J7030; S0028

== ENCOUNTER 2017-08-22 11:14 | Inpatient (IN) | payer OTHER ==
[~2017-08-22] VITALS: Ht 177.8 cm; Wt 79.1 kg
[~2017-08-22 11:14] MED LIST changes: +ALEVE220 M2 PO; -BASAGLAR K100 UNIT/1 SC; -HUMALOG100 UNIT/1 SC; +LACTULOSE10 GM/151 PO; +NOVOLOG PE100 UNITS/ SC; +OMEPRAZOLE40 M1 PO; -PRILOSEC20 MG PO
[2017-08-22 11:55] LABS: BASOPHIL (%) 0.4 % (0-1); EOSINOPHIL (%) 0.7 % (0-5); HEMATOCRIT 29.6 % (38.0-50.0); IMMATURE GRANULOCYTE (%) 0.2 % (0.0-0.7); LYMPHOCYTE COUNT 0.4 K/uL (1.0-2.8); MCH 31.9 PG (29.0-34.0); MCHC 33.8 G/DL (30.0-36.0); MCV 94.6 FL (86-99); MONOCYTE (%) 8.2 % (3-12); MONOCYTE COUNT 0.4 K/uL (0-0.8); NEUTROPHIL (%) 82.5 % (45-76); NEUTROPHIL COUNT 3.7 K/uL (1.8-6.4); PLATELET COUNT 104 K/uL (156-360); RBC DIS.WIDTH-CV 16.8 % (11.8-14.6); RBC DIS.WIDTH-SD 58.6 % (39-53); RED BLOOD COUNT 3.13 M/uL (4.00-5.50); WHITE BLOOD COUNT 4.5 K/uL (4.1-10.2)
[2017-08-22 12:01] LABS: INTER. NORMALIZED RATIO 1.2
[2017-08-22 12:03] LABS: PTT 31.1 SEC (25-37)
[2017-08-22 12:07] LABS: CHLORIDE 110 mEq/L (99-109); POTASSIUM 4.6 mEq/L (3.7-5.4); SODIUM 139 mEq/L (136-147)
[2017-08-22 12:08] LABS: MAGNESIUM 1.9 mg/dL (1.3-2.7)
[2017-08-22 12:09] LABS: GLUCOSE 201 mg/dL (70-99); TOTAL PROTEIN 6.4 g/dL (6.4-8.3)
[2017-08-22 12:12] LABS: SERUM ETHYL ALCOHOL < 10 mg/dL
[2017-08-22 12:13] LABS: ALKALINE PHOSPHATASE 133 IU/L (3-129); CREATININE 1.6 mg/dL (0.6-1.3); GFR ESTIMATE (CALCULATED) 46 mL/min/ (58.99-99999)
[2017-08-22 12:14] LABS: UREA NITROGEN (BUN) 31 mg/dL (9-23)
[2017-08-22 12:15] LABS: AST (GOT) 27 IU/L (2-34)
[2017-08-22 12:16] LABS: ALT (GPT) 33 IU/L (3-49); TROP-I INTERPRETATION NEGATIVE; TROPONIN-I < 0.01 ng/mL (0.0-0.30)
[2017-08-22 12:39] LABS: APPEARANCE CLEAR ((CLEAR)); BILIRUBIN NEGATIVE; BLOOD NEGATIVE; COLOR YELLOW ((YELLOW)); GLUCOSE (STRIP) NEGATIVE; KETONES NEGATIVE; LEUKOCYTES NEGATIVE; NITRITE NEGATIVE; PROTEIN (STRIP) NEGATIVE; SPECIFIC GRAVITY 1.012 (1.000-1.030); UCUL ADDED? NO; UROBILINOGEN 0.2 MG/DL (0.2-1.0)
[2017-08-22] MEDS ORDERED: LACTULOSE10 GM/151 PO (13:57)
[2017-08-22 18:05] VITALS: BP 137/74
[2017-08-22 20:19] VITALS: BP 143/66
[2017-08-22 23:52] VITALS: BP 156/71
[2017-08-23 03:48] VITALS: BP 137/64
[2017-08-23 05:50] LABS: HEMOGLOBIN 8.9 G/DL (12.5-16.6); MCV 97.1 FL (86-99); PLATELET COUNT 96 K/uL (156-360); RBC DIS.WIDTH-CV 16.8 % (11.8-14.6); RED BLOOD COUNT 2.78 M/uL (4.00-5.50); WHITE BLOOD COUNT 3.9 K/uL (4.1-10.2)
[2017-08-23 06:10] LABS: ALBUMIN 2.6 G/DL (3.2-4.8); ALKALINE PHOSPHATASE 103 IU/L (3-129); ALT (GPT) 23 IU/L (3-49); AST (GOT) 23 IU/L (2-34); CHLORIDE 112 MEQ/L (99-109); CREATININE 1.5 MG/DL (0.6-1.3); GFR ESTIMATE (CALCULATED) 49 mL/min/ (58.99-99999); SODIUM 143 MEQ/L (136-147); TOTAL PROTEIN 5.2 G/DL (6.4-8.3); UREA NITROGEN (BUN) 30 mg/dL (9-23)
[2017-08-23 06:23] LABS: GLUCOSE 117 mg/dL (70-99)
[2017-08-23 07:45] VITALS: BP 129/62
[2017-08-23 12:30] VITALS: BP 136/66
[2017-08-23 15:24] VITALS: BP 129/61
[2017-08-23 19:31] VITALS: BP 129/60
[2017-08-23 22:26] VITALS: BP 136/60
[2017-08-24 04:06] VITALS: BP 130/62
[2017-08-24 06:14] LABS: BASOPHIL (%) 1.1 % (0-1); EOSINOPHIL COUNT 0.1 K/uL (0-0.3); HEMATOCRIT 25.9 % (38.0-50.0); HEMOGLOBIN 8.6 G/DL (12.5-16.6); IMMATURE GRANULOCYTE (%) 0.3 % (0.0-0.7); LYMPHOCYTE (%) 12.7 % (15-42); LYMPHOCYTE COUNT 0.5 K/uL (1.0-2.8); MCH 32.3 PG (29.0-34.0); MCHC 33.2 G/DL (30.0-36.0); MCV 97.4 FL (86-99); MONOCYTE (%) 14.2 % (3-12); MONOCYTE COUNT 0.5 K/uL (0-0.8); NEUTROPHIL (%) 67.7 % (45-76); NEUTROPHIL COUNT 2.4 K/uL (1.8-6.4); PLATELET COUNT 82 K/uL (156-360); RBC DIS.WIDTH-CV 16.6 % (11.8-14.6); RBC DIS.WIDTH-SD 59.4 % (39-53); RED BLOOD COUNT 2.66 M/uL (4.00-5.50); WHITE BLOOD COUNT 3.5 K/uL (4.1-10.2)
[2017-08-24 06:45] LABS: CHLORIDE 111 MEQ/L (99-109); CREATININE 1.5 MG/DL (0.6-1.3); GFR ESTIMATE (CALCULATED) 49 mL/min/ (58.99-99999); POTASSIUM 4.1 MEQ/L (3.7-5.4); SODIUM 141 MEQ/L (136-147); UREA NITROGEN (BUN) 34 mg/dL (9-23)
[2017-08-24 06:57] LABS: GLUCOSE 74 mg/dL (70-99)
[2017-08-24 08:51] VITALS: BP 113/58
[2017-08-24 11:49] VITALS: BP 134/63
[2017-08-24 16:12] VITALS: BP 118/58
[2017-08-24 19:20] VITALS: BP 134/64
[2017-08-25] VITALS (8 sets, daily range): BP systolic 122–150; BP diastolic 59–70
[2017-08-25 05:33] LABS: BASOPHIL (%) 0.6 % (0-1); EOSINOPHIL (%) 4.6 % (0-5); EOSINOPHIL COUNT 0.2 K/uL (0-0.3); HEMATOCRIT 25.3 % (38.0-50.0); HEMOGLOBIN 8.4 G/DL (12.5-16.6); IMMATURE GRANULOCYTE (%) 0.6 % (0.0-0.7); LYMPHOCYTE (%) 9.8 % (15-42); LYMPHOCYTE COUNT 0.3 K/uL (1.0-2.8); MCH 32.1 PG (29.0-34.0); MCHC 33.2 G/DL (30.0-36.0); MCV 96.6 FL (86-99); MONOCYTE (%) 14.7 % (3-12); MONOCYTE COUNT 0.5 K/uL (0-0.8); NEUTROPHIL (%) 69.7 % (45-76); NEUTROPHIL COUNT 2.4 K/uL (1.8-6.4); PLATELET COUNT 95 K/uL (156-360); RBC DIS.WIDTH-CV 16.1 % (11.8-14.6); RBC DIS.WIDTH-SD 58.1 % (39-53); RED BLOOD COUNT 2.62 M/uL (4.00-5.50); WHITE BLOOD COUNT 3.5 K/uL (4.1-10.2)
[2017-08-25 06:06] LABS: ALBUMIN 2.5 G/DL (3.2-4.8); ALKALINE PHOSPHATASE 103 IU/L (3-129); ALT (GPT) 24 IU/L (3-49); AST (GOT) 34 IU/L (2-34); CHLORIDE 108 MEQ/L (99-109); CREATININE 1.4 MG/DL (0.6-1.3); GFR ESTIMATE (CALCULATED) 53 mL/min/ (58.99-99999); GLUCOSE 111 mg/dL (70-99); POTASSIUM 4.5 MEQ/L (3.7-5.4); SODIUM 137 MEQ/L (136-147); TOTAL BILIRUBIN 0.7 MG/DL (0.0-1.0); UREA NITROGEN (BUN) 33 mg/dL (9-23)
[2017-08-25 18:29] LABS: STOOL OCCULT BLD 1ST SPECIMEN POSITIVE
[2017-08-26 03:03] VITALS: BP 135/63
[2017-08-26 05:04] LABS: BASOPHIL (%) 1.1 % (0-1); EOSINOPHIL (%) 4.8 % (0-5); EOSINOPHIL COUNT 0.2 K/uL (0-0.3); HEMATOCRIT 26.9 % (38.0-50.0); IMMATURE GRANULOCYTE (%) 0.8 % (0.0-0.7); LYMPHOCYTE (%) 9.9 % (15-42); LYMPHOCYTE COUNT 0.4 K/uL (1.0-2.8); MCH 31.8 PG (29.0-34.0); MCHC 33.5 G/DL (30.0-36.0); MCV 95.1 FL (86-99); MONOCYTE (%) 15.5 % (3-12); MONOCYTE COUNT 0.6 K/uL (0-0.8); NEUTROPHIL (%) 67.9 % (45-76); NEUTROPHIL COUNT 2.4 K/uL (1.8-6.4); PLATELET COUNT 93 K/uL (156-360); RBC DIS.WIDTH-CV 15.9 % (11.8-14.6); RBC DIS.WIDTH-SD 55.2 % (39-53); RED BLOOD COUNT 2.83 M/uL (4.00-5.50); WHITE BLOOD COUNT 3.5 K/uL (4.1-10.2)
[2017-08-26 05:23] LABS: CHLORIDE 109 mEq/L (99-109); POTASSIUM 4.6 mEq/L (3.7-5.4); SODIUM 136 mEq/L (136-147)
[2017-08-26 05:25] LABS: GLUCOSE 95 mg/dL (70-99)
[2017-08-26 05:29] LABS: CREATININE 1.3 mg/dL (0.6-1.3); GFR ESTIMATE (CALCULATED) 58 mL/min/ (58.99-99999)
[2017-08-26 05:30] LABS: UREA NITROGEN (BUN) 32 mg/dL (9-23)
[2017-08-26 05:46] LABS: INTER. NORMALIZED RATIO 1.1
[2017-08-26 08:33] VITALS: BP 117/59
[2017-08-26 11:17] VITALS: BP 124/58
[2017-08-26 17:51] VITALS: BP 129/60
[2017-08-26 19:41] VITALS: BP 118/56
[2017-08-26 23:19] VITALS: BP 133/64
[2017-08-27 04:24] VITALS: BP 127/80
[2017-08-27 06:57] LABS: BASOPHIL (%) 1.3 % (0-1); BASOPHIL COUNT 0.1 K/uL (0-0.1); EOSINOPHIL (%) 4.4 % (0-5); EOSINOPHIL COUNT 0.2 K/uL (0-0.3); HEMATOCRIT 29.5 % (38.0-50.0); HEMOGLOBIN 9.6 G/DL (12.5-16.6); IMMATURE GRANULOCYTE (%) 0.8 % (0.0-0.7); LYMPHOCYTE COUNT 0.5 K/uL (1.0-2.8); MCH 31.7 PG (29.0-34.0); MCHC 32.5 G/DL (30.0-36.0); MCV 97.4 FL (86-99); MONOCYTE (%) 13.8 % (3-12); MONOCYTE COUNT 0.7 K/uL (0-0.8); NEUTROPHIL (%) 69.7 % (45-76); NEUTROPHIL COUNT 3.3 K/uL (1.8-6.4); PLATELET COUNT 113 K/uL (156-360); RBC DIS.WIDTH-CV 15.4 % (11.8-14.6); RBC DIS.WIDTH-SD 55.6 % (39-53); RED BLOOD COUNT 3.03 M/uL (4.00-5.50); WHITE BLOOD COUNT 4.8 K/uL (4.1-10.2)
[2017-08-27 07:35] VITALS: BP 115/57
[2017-08-27 07:37] LABS: ALBUMIN 3.1 G/DL (3.2-4.8); CHLORIDE 105 MEQ/L (99-109); CREATININE 1.3 MG/DL (0.6-1.3); GFR ESTIMATE (CALCULATED) 58 mL/min/ (58.99-99999); GLUCOSE 92 mg/dL (70-99); POTASSIUM 4.7 MEQ/L (3.7-5.4); SODIUM 135 MEQ/L (136-147); TOTAL BILIRUBIN 0.8 MG/DL (0.0-1.0); UREA NITROGEN (BUN) 33 mg/dL (9-23)
[2017-08-27 07:44] LABS: ALKALINE PHOSPHATASE 141 IU/L (3-129); ALT (GPT) 48 IU/L (3-49); AST (GOT) 64 IU/L (2-34); TOTAL PROTEIN 6.2 G/DL (6.4-8.3)
[2017-08-27 17:11] VITALS: BP 97/52
[2017-08-27 17:30] VITALS: BP 102/57
[2017-08-28 00:56] VITALS: BP 113/62
[2017-08-28 06:27] LABS: EOSINOPHIL (%) 4.5 % (0-5); EOSINOPHIL COUNT 0.2 K/uL (0-0.3); HEMATOCRIT 26.8 % (38.0-50.0); HEMOGLOBIN 8.7 G/DL (12.5-16.6); IMMATURE GRANULOCYTE (%) 0.5 % (0.0-0.7); LYMPHOCYTE (%) 10.4 % (15-42); LYMPHOCYTE COUNT 0.4 K/uL (1.0-2.8); MCH 31.2 PG (29.0-34.0); MCHC 32.5 G/DL (30.0-36.0); MCV 96.1 FL (86-99); MONOCYTE (%) 15.7 % (3-12); MONOCYTE COUNT 0.6 K/uL (0-0.8); NEUTROPHIL (%) 67.9 % (45-76); NEUTROPHIL COUNT 2.7 K/uL (1.8-6.4); PLATELET COUNT 99 K/uL (156-360); RBC DIS.WIDTH-CV 15.3 % (11.8-14.6); RBC DIS.WIDTH-SD 54.5 % (39-53); RED BLOOD COUNT 2.79 M/uL (4.00-5.50)
[2017-08-28 07:05] LABS: CHLORIDE 106 MEQ/L (99-109); CREATININE 1.3 MG/DL (0.6-1.3); GFR ESTIMATE (CALCULATED) 58 mL/min/ (58.99-99999); GLUCOSE 85 mg/dL (70-99); POTASSIUM 4.7 MEQ/L (3.7-5.4); SODIUM 136 MEQ/L (136-147); UREA NITROGEN (BUN) 37 mg/dL (9-23)
[2017-08-28 07:47] VITALS: BP 122/69
[2017-08-28 16:12] VITALS: BP 119/63
[2017-08-29 00:03] VITALS: BP 125/65
[2017-08-29 06:07] LABS: BASOPHIL (%) 0.7 % (0-1); EOSINOPHIL (%) 3.7 % (0-5); EOSINOPHIL COUNT 0.2 K/uL (0-0.3); HEMATOCRIT 26.3 % (38.0-50.0); HEMOGLOBIN 8.7 G/DL (12.5-16.6); IMMATURE GRANULOCYTE (%) 0.5 % (0.0-0.7); LYMPHOCYTE (%) 12.4 % (15-42); LYMPHOCYTE COUNT 0.5 K/uL (1.0-2.8); MCH 32.1 PG (29.0-34.0); MCHC 33.1 G/DL (30.0-36.0); MONOCYTE (%) 13.2 % (3-12); MONOCYTE COUNT 0.5 K/uL (0-0.8); NEUTROPHIL (%) 69.5 % (45-76); NEUTROPHIL COUNT 2.9 K/uL (1.8-6.4); PLATELET COUNT 100 K/uL (156-360); RBC DIS.WIDTH-CV 15.8 % (11.8-14.6); RBC DIS.WIDTH-SD 56.3 % (39-53); RED BLOOD COUNT 2.71 M/uL (4.00-5.50); WHITE BLOOD COUNT 4.1 K/uL (4.1-10.2)
[2017-08-29 08:07] VITALS: BP 116/59; BP 132/77
[2017-08-29 16:30] VITALS: BP 97/56
[2017-08-29 23:59] VITALS: BP 113/61
[2017-08-30 06:42] LABS: BASOPHIL (%) 0.7 % (0-1); EOSINOPHIL (%) 3.9 % (0-5); EOSINOPHIL COUNT 0.2 K/uL (0-0.3); HEMATOCRIT 24.2 % (38.0-50.0); HEMOGLOBIN 8.3 G/DL (12.5-16.6); IMMATURE GRANULOCYTE (%) 0.5 % (0.0-0.7); LYMPHOCYTE (%) 10.8 % (15-42); LYMPHOCYTE COUNT 0.4 K/uL (1.0-2.8); MCH 33.2 PG (29.0-34.0); MCHC 34.3 G/DL (30.0-36.0); MCV 96.8 FL (86-99); MONOCYTE (%) 13.5 % (3-12); MONOCYTE COUNT 0.6 K/uL (0-0.8); NEUTROPHIL (%) 70.6 % (45-76); NEUTROPHIL COUNT 2.9 K/uL (1.8-6.4); PLATELET COUNT 104 K/uL (156-360); RBC DIS.WIDTH-CV 15.8 % (11.8-14.6); RBC DIS.WIDTH-SD 56.3 % (39-53); WHITE BLOOD COUNT 4.1 K/uL (4.1-10.2)
[2017-08-30 07:44] VITALS: BP 116/61
[2017-08-30] MEDS ORDERED: XIFAXAN550 MG PO (10:58)
[2017-08-30] MEDS ORDERED: BUMETANIDE1 MG PO (10:58)
== END 2017-08-30 16:13 | DRG 442 ==
LOC: EME 11:14 → EDOF 15:46 → 5SOUTH 15:46 → 4EAST 15:46 → ENRESERV 15:48 → 4EAST 17:56 → ENRESERV 08-27 14:29 → 5SOUTH 08-27 17:20
PROVIDERS: Emergency Medicine; Internal Medicine; Specialist
DX: K72.00 Acute and subacute hepatic failure without coma (principal); N17.9 Acute kidney failure, unspecified; R18.8 Other ascites; K74.60 Unspecified cirrhosis of liver; I12.0 Hypertensive chronic kidney disease with stage 5 chronic kidney disease or end stage renal disease; N18.3 Chronic kidney disease, stage 3 (moderate); E11.22 Type 2 diabetes mellitus with diabetic chronic kidney disease; D69.59 Other secondary thrombocytopenia; R53.1 Weakness; I25.10 Atherosclerotic heart disease of native coronary artery without angina pectoris; E78.5 Hyperlipidemia, unspecified; D50.0 Iron deficiency anemia secondary to blood loss (chronic); R19.5 Other fecal abnormalities; Z66 Do not resuscitate; E66.9 Obesity, unspecified; Z68.24 Body mass index [BMI] 24.0-24.9, adult; Z75.1 Person awaiting admission to adequate facility elsewhere; Z79.4 Long term (current) use of insulin; Z85.038 Personal history of other malignant neoplasm of large intestine; Z87.442 Personal history of urinary calculi; Z87.891 Personal history of nicotine dependence; Z93.3 Colostomy status; Z95.1 Presence of aortocoronary bypass graft
CPT/HCPCS: 71010; 76705; 80048; 80053; 81003; 82140; 82272; 82746; 82948; 83605; 83735; 83880; 84484; 85025; 85027; 85610; 85730; 93005; 97530 GO; 99281; 99285; A6214; G0480; J1815; J7030; S0028